=== PATIENT | female | born 1980 | race Caucasian/White ===

== ENCOUNTER 2018-12-05 00:17 | Observation (INO) | payer OTHER ==
[2018-12-05] MEDS ORDERED: CEFEPIME 2 GM in SODIUM CHLORIDE 0.9% 100 ML IVPB STA (00:55)
[2018-12-05] MEDS ORDERED: CLINDAMYCIN 600 MG in DEXTROSE 5% IN WATER 50 ML IVPB STA ×2 (00:56)
[2018-12-05] MEDS ORDERED: MORPHINE SULFATE 4 MG/ML SYRINGE IVP STA (01:46)
--- NOTE | 2018-12-05 01:57 | ED ---
Skin/Abscess/FB HPI - General Chief complaint: Skin/Abscess/Foreign Body Stated complaint: abscess on arm Time Seen by Provider: 12/05/18 00:36 Source: patient Mode of arrival: ambulatory Limitations: no limitations - History of Present Illness Initial comments: 38-year-old female presenting for swelling of right forearm. Patient states that she is an IV drug user, she states a day or 2 after injecting in the right before meals she began began developing swelling and tenderness and increasing redness. Patient is concerned infection presents emergency department. Patient denies fever or chills. She admits to night sweats. Patient denies history of DVT or pulmonary him was on. Remaining review of systems negative, patient denies any recent shortness of breath, chest pain, back pain, abdominal pain, nausea or vomiting, numbness or tingling, dysuria or hematuria, constipation or diarrhea, headaches or visual changes, or any other complaints. - Related Data Home Medications Medication Instructions Recorded Confirmed Atorvastatin Calcium [Lipitor] 20 mg PO HS 08/26/14 10/29/15 Sertraline [Zoloft] 100 mg PO DAILY 08/26/14 10/29/15 ALPRAZolam [Xanax] 1 mg PO Q8HR 10/22/15 10/29/15 Ergocalciferol [Vitamin D2] 50,000 unit PO Q7D 10/22/15 10/29/15 Norethindrone-Ethinyl Estrad 1 each PO DAILY 10/22/15 10/29/15 [Ortho-Novum 7-7-7-28 Tablet] Ranitidine HCl [Zantac] 150 mg PO BID 10/22/15 10/29/15 SUMAtriptan SUCCINATE [Imitrex] 100 mg PO DAILY 10/22/15 10/29/15 oxyCODONE-APAP 10-325MG [Percocet 1 tab PO Q6HR PRN 10/22/15 10/29/15 10-325 mg] tiZANidine [Zanaflex] 4 mg PO Q8HR PRN 10/22/15 10/29/15 Allergies Allergy/AdvReac Type Severity Reaction Status Date / Time No Known Allergies Allergy Verified 12/05/18 00:27 Review of Systems ROS Statement: Those systems with pertinent positive or pertinent negative responses have been documented in the HPI. ROS Other: All systems not noted in ROS Statement are negative. Past Medical History Past Medical History: Musculoskeletal Disorder History of Any Multi-Drug Resistant Organisms: None Reported Past Surgical History: Appendectomy Additional Past Surgical History / Comment(s): Leep Past Anesthesia/Blood Transfusion Reactions: No Reported Reaction Past Psychological History: Depression Smoking Status: Current every day smoker Past Alcohol Use History: None Reported Past Drug Use History: None Reported - Past Family History Mother Family Medical History: No Reported History General Exam - General Exam Comments Initial Comments: General: The patient is awake and alert, in no distress. Eye: Pupils are equal, round and reactive to light, extra-ocular movements are intact. No nystagmus. There is normal conjunctiva bilaterally. No signs of icterus. Ears, nose, mouth and throat: There are moist mucous membranes and no oral lesions. Neck: The neck is supple, there is no tenderness or JVD. Cardiovascular: There is a regular rate and rhythm. No murmur, rub or gallop is appreciated. Respiratory: Lungs are clear to auscultation, respirations are non-labored, breath sounds are equal. No wheezes, stridor, rales, or rhonchi. Musculoskeletal: Normal ROM, no tenderness. Strength 5/5. Sensation intact. Pulses equal bilaterally 2+. Neurological: A&O x 3. CN II-XII intact, There are no obvious motor or sensory deficits. Coordination appears grossly intact. Speech is normal. Skin: Skin is warm and dry and no rashes or lesions are noted. Large fluctuant area over the right before meals 2 x 2 centimeters in diameter. Erythematous warmth/tenderness to palpation Limitations: no limitations Course Vital Signs 12/05/18 12/05/18 00:24 03:52 Temperature 99.7 F H 99.4 F Pulse Rate 122 H 104 H Respiratory 20 16 Rate Blood Pressure 118/78 123/86 O2 Sat by Pulse 97 100 Oximetry Medical Decision Making - Medical Decision Making 38 yo female presenting for right arm swelling. Swelling was concerning for internal or abscess. CT was obtained revealing a superficial relatively superficial abscess 3.8 cm in the antecubital fossa with surrounding phlegmon reaction. There appears to be a reactive myositis and surrounding muscles. Laboratory studies reveal leukocytosis. Pt HR elevated. SIRS criteria. Pt given broad-spectrum antibiotic with clindamycin for MRSA coverage. IVF. Pt hemo dynamically stable. At this time given location feel patient should be admitted for surgical drainage. On-call physician Dr. Canales was contacted speaking with the type provider Dr. Khan, accepting admission with ID and medicine consult. pt ordered NPO. Maintenace fluids ordered. Pt is agreeable wt admission.. Pt was evaluted in person by attending provider. - Lab Data Result diagrams: 12/05/18 02:21 12/05/18 02:21 Lab Results 12/05/18 12/05/18 12/05/18 Range/Units 02:21 02:21 02:21 WBC 16.9 H (3.8-10.6) k/uL RBC 4.07 (3.80-5.40) m/uL Hgb 12.2 (11.4-16.0) gm/dL Hct 37.7 (34.0-46.0) % MCV 92.4 (80.0-100.0) fL MCH 29.9 (25.0-35.0) pg MCHC 32.3 (31.0-37.0) g/dL RDW 14.3 (11.5-15.5) % Plt Count 365 (150-450) k/uL Neutrophils % 77 % Lymphocytes % 16 % Monocytes % 5 % Eosinophils % 0 % Basophils % 0 % Neutrophils # 12.9 H (1.3-7.7) k/uL Lymphocytes # 2.7 (1.0-4.8) k/uL Monocytes # 0.9 (0-1.0) k/uL Eosinophils # 0.1 (0-0.7) k/uL Basophils # 0.1 (0-0.2) k/uL Sodium 136 L (137-145) mmol/L Potassium 3.1 L (3.5-5.1) mmol/L Chloride 101 (98-107) mmol/L Carbon Dioxide 22 (22-30) mmol/L Anion Gap 13 mmol/L BUN 9 (7-17) mg/dL Creatinine 0.56 (0.52-1.04) mg/dL Est GFR (CKD-EPI)AfAm >90 (>60 ml/min/1.73 sqM) Est GFR (CKD-EPI)NonAf >90 (>60 ml/min/1.73 sqM) Glucose 106 H (74-99) mg/dL Plasma Lactic Acid Shawn 0.8 (0.7-2.0) mmol/L Calcium 9.9 (8.4-10.2) mg/dL Total Bilirubin 0.8 (0.2-1.3) mg/dL AST 10 L (14-36) U/L ALT 15 (9-52) U/L Alkaline Phosphatase 82 (38-126) U/L Total Protein 7.3 (6.3-8.2) g/dL Albumin 4.1 (3.5-5.0) g/dL Disposition Clinical Impression: Abscess, SIRS (systemic inflammatory response syndrome) Disposition: ADMITTED IP TO THIS [facility] Condition: Stable Is patient prescribed a controlled substance at d/c from ED?: No Referrals: Bear Nuñez DO [Primary Care Provider] - 1-2 days Time of Disposition: 03:59 Decision to Admit Reason: Admit from EC Decision Date: 12/05/18 Decision Time: 03:59
[2018-12-05] MEDS ORDERED: SODIUM CHLORIDE 0.9% 500 ML 500 ML IV ONE (02:08)
[2018-12-05] MEDS ORDERED: SODIUM CHLORIDE 0.9% 1,000 ML IV ONE ×2 (02:08→10:43)
--- NOTE | 2018-12-05 02:20 | CT ---
EXAM: CT Right Upper Extremity With Intravenous Contrast CLINICAL HISTORY: ITS.REASON CT Reason: right antecubital abscess, appears deep TECHNIQUE: Axial computed tomography images of the right upper extremity with intravenous contrast. CTDI is 15 mGy and DLP is 451 mGy-cm. This CT exam was performed using one or more of the following dose reduction techniques: automated exposure control, adjustment of the mA and/or kV according to patient size, and/or use of iterative reconstruction technique. COMPARISON: No relevant prior studies available. FINDINGS: Bones/joints: Unremarkable. No acute fracture. No dislocation. Soft tissues: In the antecubital fossa, there is a 2.2 x 1.5 x 3.8 cm fluid collection with surrounding phlegmon this process. Vessels are patent. The skin is 5 mm above this process. There is hypodensity of the surrounding muscles. IMPRESSION: Relatively superficial 3.8 cm abscess in the antecubital fossa with surrounding phlegmonous reaction. The skin is 5 mm above this abscess. Hypodensities of the surrounding muscles likely representing reactive myositis.
[2018-12-05 02:41] LABS: ALT 15 U/L (9-52); AST 10 U/L (14-36); Albumin 4.1 g/dL (3.5-5.0); Alkaline Phosphatase 82 U/L (38-126); Anion Gap 13 mmol/L; Blood Urea Nitrogen 9 mg/dL (7-17); Calcium 9.9 mg/dL (8.4-10.2); Carbon Dioxide 22 mmol/L (22-30); Chloride 101 mmol/L (98-107); Glucose 106 mg/dL (74-99); Potassium 3.1 mmol/L (3.5-5.1); Sodium 136 mmol/L (137-145); Total Bilirubin 0.8 mg/dL (0.2-1.3); Total Protein 7.3 g/dL (6.3-8.2)
[2018-12-05 02:47] LABS: Basophils # (A) 0.1 k/uL (0-0.2); Basophils % (A) 0 %; Eosinophils # (A) 0.1 k/uL (0-0.7); Eosinophils % (A) 0 %; HCT 37.7 % (34.0-46.0); HGB 12.2 gm/dL (11.4-16.0); Lymphocytes # (A) 2.7 k/uL (1.0-4.8); Lymphocytes % (A) 16 %; MCH 29.9 pg (25.0-35.0); MCHC 32.3 g/dL (31.0-37.0); MCV 92.4 fL (80.0-100.0); Mean Platelet Volume 7.4; Monocytes # (A) 0.9 k/uL (0-1.0); Monocytes % (A) 5 %; Neutrophils # (A) 12.9 k/uL (1.3-7.7); Neutrophils % (A) 77 %; Platelet Count 365 k/uL (150-450); RBC 4.07 m/uL (3.80-5.40); RDW 14.3 % (11.5-15.5); WBC 16.9 k/uL (3.8-10.6)
[2018-12-05] MEDS ORDERED: NALOXONE 0.4 MG/ML 1 ML VIAL IV PRN (02:52)
[2018-12-05] MEDS: SODIUM CHLORIDE 0.9% 1,000 ML IV SCH ×2 (03:22→16:49)
[2018-12-05] MEDS ORDERED: ACETAMINOPHEN IV (For NPO) 1,000 MG in EMPTY BAG 1 BAG IVPB PRN (05:16)
[2018-12-05 08:57] LABS: Amphetamine Screen,Urine Detected (NotDetected); Barbiturate Screen,Urine Not Detected (NotDetected); Benzodiazepines Screen,Urine Detected (NotDetected); Cocaine Screen,Urine Detected (NotDetected); Methadone Screen, Urine Not Detected (NotDetected); Opiate Screen,Urine Detected (NotDetected); Oxycodone Screen, Urine Not Detected (NotDetected); Phencyclidine Screen,Urine Not Detected (NotDetected); Tricyclic Antidepressant,Urine Detected (NotDetected); Urn Cannabinoid Scrn Detected (NotDetected)
[2018-12-05] MEDS ORDERED: ONDANSETRON 4 MG/2 ML VIAL IVP PRN (09:24)
[2018-12-05] MEDS ORDERED: VANCOMYCIN IV PER PHARMACY 1 EACH MISC MISCELLANE PRN (09:25)
[2018-12-05] MEDS: PANTOPRAZOLE 40 MG/10 ML VIAL IVP SCH (09:38)
[2018-12-05] MEDS: KETOROLAC 30 MG/ML 1 ML VIAL IVP PRN ×3 (09:41→21:15)
--- NOTE | 2018-12-05 09:54 | P.GSHP ---
History of Present Illness H&P Date: 12/05/18 Chief Complaint: Right antecubital fossa abscess 38-year-old female. Admits to IV drug use. Patient describes increasing swelling in the right antecubital fossa after using that site for injection. Increasing redness and pain. Unable to bend the elbow much because of dis comfort. Denies fevers although had a low-grade fever here in the hospital. Leukocytosis identified on CBC. Urine drug screen shows multiple positive findings. Denies any numbness or tingling in the distal right extremity, no weakness. Patient states she has had a similar episode in her right lower quadrant or groin in the past. CAT scan was performed showing a subcutaneous abscess collection. - Review of Systems Comment: The patient denies any acute changes in vision or hearing, no dysphagia or odynophagia, no chest pain or shortness of breath, no dysuria or hematuria, no headache, no runny nose, no rectal bleeding or melena, no unexplained weight loss Past Medical History Past Medical History: Musculoskeletal Disorder History of Any Multi-Drug Resistant Organisms: None Reported Past Surgical History: Appendectomy Additional Past Surgical History / Comment(s): Leep Past Anesthesia/Blood Transfusion Reactions: No Reported Reaction Past Psychological History: Depression Smoking Status: Current every day smoker Past Alcohol Use History: None Reported Past Drug Use History: None Reported - Past Family History Mother Family Medical History: No Reported History Medications and Allergies Home Medications Medication Instructions Recorded Confirmed Type Atorvastatin Calcium [Lipitor] 20 mg PO HS 08/26/14 12/05/18 History Sertraline [Zoloft] 100 mg PO DAILY 08/26/14 12/05/18 History Ergocalciferol [Vitamin D2] 50,000 unit PO Q7D 10/22/15 12/05/18 History Ranitidine HCl [Zantac] 150 mg PO BID 10/22/15 12/05/18 History SUMAtriptan SUCCINATE [Imitrex] 100 mg PO DAILY 10/22/15 12/05/18 History Allergies Allergy/AdvReac Type Severity Reaction Status Date / Time No Known Allergies Allergy Verified 12/05/18 08:32 Surgical - Exam Vital Signs Temp Pulse Resp BP Pulse Ox 99.7 F H 122 H 20 118/78 97 12/05/18 00:24 12/05/18 00:24 12/05/18 00:24 12/05/18 00:24 12/05/18 00:24 Physical exam: General: Well-developed, well-nourished HEENT: Normocephalic, sclerae nonicteric Abdomen: Nontender, nondistended Extremities: Edema, erythema, tenderness, and induration right antecubital fos sa, just above the elbow crease there is an area of fluctuance measuring 2 x 1 cm, skin is viable Neuro: Alert and oriented Results - Labs 12/05/18 02:21 12/05/18 02:21 Abnormal Lab Results - Last 24 Hours (Table) 12/05/18 12/05/18 12/05/18 Range/Units 02:21 02:21 08:00 WBC 16.9 H (3.8-10.6) k/uL Neutrophils # 12.9 H (1.3-7.7) k/uL Sodium 136 L (137-145) mmol/L Potassium 3.1 L (3.5-5.1) mmol/L Glucose 106 H (74-99) mg/dL AST 10 L (14-36) U/L Urine Opiates Screen Detected H (NotDetected) U Tricyclic Antidepress Detected H (NotDetected) Ur Amphetamines Screen Detected H (NotDetected) U Methamphetamines Scrn Detected H (NotDetected) U Benzodiazepines Scrn Detected H (NotDetected) Urine Cocaine Screen Detected H (NotDetected) U Marijuana (THC) Screen Detected H (NotDetected) Diabetes panel 12/05/18 Range/Units 02:21 Sodium 136 L (137-145) mmol/L Potassium 3.1 L (3.5-5.1) mmol/L Chloride 101 (98-107) mmol/L Carbon Dioxide 22 (22-30) mmol/L BUN 9 (7-17) mg/dL Creatinine 0.56 (0.52-1.04) mg/dL Glucose 106 H (74-99) mg/dL Calcium 9.9 (8.4-10.2) mg/dL AST 10 L (14-36) U/L ALT 15 (9-52) U/L Alkaline Phosphatase 82 (38-126) U/L Total Protein 7.3 (6.3-8.2) g/dL Albumin 4.1 (3.5-5.0) g/dL Calcium panel 12/05/18 Range/Units 02:21 Calcium 9.9 (8.4-10.2) mg/dL Albumin 4.1 (3.5-5.0) g/dL Pituitary panel 12/05/18 Range/Units 02:21 Sodium 136 L (137-145) mmol/L Potassium 3.1 L (3.5-5.1) mmol/L Chloride 101 (98-107) mmol/L Carbon Dioxide 22 (22-30) mmol/L BUN 9 (7-17) mg/dL Creatinine 0.56 (0.52-1.04) mg/dL Glucose 106 H (74-99) mg/dL Calcium 9.9 (8.4-10.2) mg/dL Adrenal panel 12/05/18 Range/Units 02:21 Sodium 136 L (137-145) mmol/L Potassium 3.1 L (3.5-5.1) mmol/L Chloride 101 (98-107) mmol/L Carbon Dioxide 22 (22-30) mmol/L BUN 9 (7-17) mg/dL Creatinine 0.56 (0.52-1.04) mg/dL Glucose 106 H (74-99) mg/dL Calcium 9.9 (8.4-10.2) mg/dL Total Bilirubin 0.8 (0.2-1.3) mg/dL AST 10 L (14-36) U/L ALT 15 (9-52) U/L Alkaline Phosphatase 82 (38-126) U/L Total Protein 7.3 (6.3-8.2) g/dL Albumin 4.1 (3.5-5.0) g/dL Assessment and Plan (1) Abscess Narrative/Plan: Will proceed with incision and drainage with washout of the abscess cavity. Wound will be packed postoperatively. Surgical procedure discussed in detail with the patient. Risks of bleeding, infection, need for additional surgery, joint infection, scarring, wound formation and slow healing, recurrent infection reviewed. She understands and wishes to proceed. Current Visit: Yes Status: Acute Code(s): L02.91 - CUTANEOUS ABSCESS, UNSPECIFIED SNOMED Code(s): 594715645
[2018-12-05] MEDS ORDERED: HYDROmorphone (PF) 1 MG/ML ONE (10:40)
[2018-12-05] MEDS ORDERED: SUCCINYLCHOLINE CHLORIDE 100 MG/5 ML SYR IV ONE (10:40)
[2018-12-05] MEDS ORDERED: MIDAZOLAM 2 MG/2 ML VIAL ONE (10:40)
[2018-12-05] MEDS ORDERED: fentaNYL (PF) 50 MCG/ML 2 ML AMP ONE (10:40)
[2018-12-05] MEDS ORDERED: LIDOCAINE 1% INJ 10MG/ML (20 ML MDV) ONE (10:40)
[2018-12-05] MEDS ORDERED: PROPOFOL 10 MG/ML 20 ML VIAL IV ONE (10:40)
[2018-12-05] MEDS ORDERED: VANCOMYCIN 1,000 MG VIAL IVPB ONE (10:50)
[2018-12-05] MEDS ORDERED: BUPIVACAINE (PF) 0.5% 30 ML VIAL SQ ONE (10:50)
[2018-12-05] MEDS ORDERED: LACTATED RINGERS 1,000 ML IV ONE (11:01)
[2018-12-05] MEDS ORDERED: HYDROmorphone 1 MG/ML 1 ML SYRINGE IM PRN (11:12)
--- NOTE | 2018-12-05 11:15 | P.OP ---
Date of Procedure: 12/05/18 Procedure(s) Performed: PREOPERATIVE DIAGNOSIS: Right antecubital fossa abscess POSTOPERATIVE DIAGNOSIS: Same PROCEDURE: Incision and drainage SURGEON: Sonam EBL: 5 mL ANESTHESIA: General COMPLICATIONS: None OPERATIVE PROCEDURE: Patient placed in the operating table in the supine position. The patient's right arm was prepped and draped sterilely. A longitudinal incision was made above the elbow crease at the site of fluctuance. Entrance into a purulent filled abscess cavity took place. This was imme diately cultured. The incision was lengthened proximally and distally. The distal aspect of our incision was right at the elbow crease. The subcutaneous abscess cavity measured 5.5 cm in length by 2 cm in width. This was irrigated with saline. There was localized with half percent Marcaine. The wound was then packed with half-inch iodoform gauze and sterile dressings were applied. DISPOSITION: Stable to recovery room
[2018-12-05] MEDS ORDERED: KETOROLAC 30 MG/ML 1 ML VIAL IVP SCH (12:00)
[2018-12-05] MEDS: VANCOMYCIN 1,250 MG in SODIUM CHLORIDE 0.9% 250 ML IVPB SCH ×2 (12:11→21:14)
--- NOTE | 2018-12-05 14:35 | P.CON ---
Consult Note - . Assessment/Plan:: Reason for consult-medical management History of present [id number] female with a past paresis significant for drug abuse comes in with swelling of her right hand. She said that she injects IV drugs through that site and she's been noticing that for the past few days she there is increasing redness and pain and swelling. She is unable to bend the elbow because of that. She was not having any fevers or chills she came into the ER for further urology management. Patient otherwise did not complain of any chest pain racing heart, no cough no shortness breath, no abdominal pain, no nausea and vomiting, or diarrhea constipation, no tingling numbness of any of the extremities, no itch or rash Patient had a CAT scan done which showed subcutaneous abscess in the right upper extremity per patient was thus given antibiotics, pain medications and was admitted under surgical service. Patient already had an I&D done by surgery in the time examination. Status post procedure the proximity was wrapped in dressing. Past medical history - IV drug abuse - Hyperlipidemia Past surgical history - Appendectomy Social history - Patient smokes every day - She admits to IV drug abuse - No history of alcohol abuse Family history - Noncontributory Physical examination Vitals - temperature 97.1 pulse 105 respiration 16 blood pressure 115/64 satting 98% on room air On exam, alert and oriented x3. HEENT: Conjunctivae normal. eyes normal. NECK: No JVD. No thyroid enlargement. No LNs CARDIOVASCULAR: S1, S2 muffled. No murmur RESPIRATION: Breath sounds diminished in the bases. No rhonchi or crackles. No bronchial breathing. ABDOMEN: Soft, nontender . No guarding. no masses palpable. No ascites, No hepatosplenomegaly.Bowel sounds heard. LEGS: No edema. no swelling NERVOUS SYSTEM: Cranial N 2-12 grossly normal. Moves all 4 limbs. No focal deficits. No sensory deficit. No signs of cerebellar dysfucntion. Skin: no ulcer no rash Joints: Patient has the right upper extremity wrapped in dressing just below the elbow joint status post I&D Lymphatic system. No LN neck axilla or groin. Impressio - Abscess of the right upper extremity 3.8 cm in the right antecubital fossa status post incision and drainage done by surgery team - Ongoing IV drug abuse - Hyperlipidemia - Leukocytosis Plan - Patient is admitted under general surgery service - Hospitalist service consulted for medical management - Pain control as per primary team - Continue antibiotics. Infectious disease consulted for further antibiotic recommendations - Continue current medical care - DVT and GI prophylaxis - We'll continue to follow the patient along with you
[2018-12-05] MEDS ORDERED: LACTATED RINGERS 1,000 ML IV SCH (16:19)
[2018-12-05] MEDS: HEPARIN SODIUM,PORCINE 5,000 UNIT/ML 1 ML VIAL SQ SCH ×2 (16:49→23:50)
--- NOTE | 2018-12-05 23:44 | P.CONS ---
History of Present Illness - Reason for Consult Consult date: 12/05/18 Right antecubital fossa abscess Requesting physician: Tony Masters - Chief Complaint Right arm pain swelling x few days - History of Present Illness Patient is a 38-year-old female with a past medical history significant for IV drug use presented to the ER at [facility] with significant pain swelling and redness to the right antecubital fossa the site of her IV drug use, patient mentioned that the right antecubital fossa area started getting painful and swollen and red that has subsequently got worse over the next few days on arrival to the hospital the patient pain was almost 10 out of 10 with no radiation she did have significant swelling and redness to it and the area was warm she did have low-grade fever and elevated white count patient has CT of the right arm elevated shows 3.8 cm abscess patient was taken to the OR this morning status post drainage of this abscess infectious disease was consulted for recommendation regarding antibiotic therapy Review of Systems CONSTITUTIONAL: Positive for weakness. Low-grade Fever EYES: No complaint. ENT:No complaint. RESPIRATORY: No complaint. CARDIOVASCULAR: No complaint. GENITOURINARY: No complaint. GASTROINTESTINAL: No complaint. MUSCULOSKELETAL: No complaint. INTEGUMENTARY: As per history of present illness. PSYCHOLOGICAL: No complaint. ENDOCRINE: No complaint. NEUROLOGIC: No complaint. Past Medical History Past Medical History: Musculoskeletal Disorder History of Any Multi-Drug Resistant Organisms: None Reported Past Surgical History: Appendectomy Additional Past Surgical History / Comment(s): Leep Past Anesthesia/Blood Transfusion Reactions: No Reported Reaction Past Psychological History: Depression Smoking Status: Current every day smoker Past Alcohol Use History: None Reported Past Drug Use History: None Reported - Past Family History Mother Family Medical History: No Reported History Medications and Allergies Home Medications Medication Instructions Recorded Confirmed Type Atorvastatin Calcium [Lipitor] 20 mg PO HS 08/26/14 12/05/18 History Sertraline [Zoloft] 100 mg PO DAILY 08/26/14 12/05/18 History Ergocalciferol [Vitamin D2] 50,000 unit PO Q7D 10/22/15 12/05/18 History Ranitidine HCl [Zantac] 150 mg PO BID 10/22/15 12/05/18 History SUMAtriptan SUCCINATE [Imitrex] 100 mg PO DAILY 10/22/15 12/05/18 History Allergies Allergy/AdvReac Type Severity Reaction Status Date / Time No Known Allergies Allergy Verified 12/05/18 08:32 Physical Exam Vitals: Vital Signs Temp Pulse Pulse Pulse Resp BP BP 12/05/18 14:00 93 101/69 12/05/18 13:45 92 98/66 12/05/18 13:30 94 114/72 12/05/18 13:15 91 106/64 12/05/18 13:00 91 106/64 12/05/18 12:45 94 108/68 12/05/18 12:30 98 113/67 12/05/18 12:15 93 106/71 12/05/18 12:00 98.6 F 98 14 110/72 12/05/18 11:47 105 H 16 115/64 12/05/18 11:33 89 16 100/59 12/05/18 11:18 97.1 F L 81 16 100/57 12/05/18 07:00 98.4 F 93 16 123/89 12/05/18 06:03 98.5 F 97 16 117/79 12/05/18 05:52 16 12/05/18 05:13 99.7 F H 93 16 112/83 12/05/18 03:52 99.4 F 104 H 16 123/86 12/05/18 00:24 99.7 F H 122 H 20 118/78 Pulse Ox 12/05/18 14:00 12/05/18 13:45 12/05/18 13:30 12/05/18 13:15 12/05/18 13:00 12/05/18 12:45 12/05/18 12:30 12/05/18 12:15 12/05/18 12:00 95 12/05/18 11:47 98 12/05/18 11:33 100 12/05/18 11:18 100 12/05/18 07:00 93 L 12/05/18 06:03 98 12/05/18 05:52 12/05/18 05:13 100 12/05/18 03:52 100 12/05/18 00:24 97 Intake and Output 12/05/18 12/05/18 12/05/18 06:59 14:59 22:59 Intake Total 1068 Output Total 10 Balance 1058 Intake: IV 500 Intake, IV Titration 450 Amount Sodium Chloride 0.9% 1, 200 000 ml @ 75 mls/hr IV . [id number] [facility] Rx#:[id number] Vancomycin 1,250 mg In 250 Sodium Chloride 0.9% 250 ml @ 125 mls/hr IVPB Q12HR [facility] Rx#:[id number] Oral 118 Output: Estimated Blood Loss 10 Other: Weight 61.734 kg GENERAL DESCRIPTION: Middle-aged female lying in bed, no distress. No tachypnea or accessory muscle of respiration use. HEENT: Shows Pallor , no scleral icterus. Oral mucous membrane is dry. No pharyngeal erythema or thrush NECK: Trachea central, no thyromegaly. LUNGS: Unlabored breathing. Clear to auscultation anteriorly. No wheeze or crackle. HEART: S1, S2, regular rate and rhythm. No loud murmur ABDOMEN: Soft, no tenderness , guarding or rigidity, no organomegaly EXTREMITIES: No edema of feet. SKIN: No rash, no masses palpable. Right antecubital fossa the wound is currently dressed with no drainage on the dressing NEUROLOGICAL: The patient is awake, alert, oriented x3, mood and affect normal. Results CBC & Chem 7: 12/05/18 02:21 12/05/18 02:21 Labs: Abnormal Lab Results - Last 24 Hours (Table) 12/05/18 12/05/18 12/05/18 Range/Units 02:21 02:21 08:00 WBC 16.9 H (3.8-10.6) k/uL Neutrophils # 12.9 H (1.3-7.7) k/uL Sodium 136 L (137-145) mmol/L Potassium 3.1 L (3.5-5.1) mmol/L Glucose 106 H (74-99) mg/dL AST 10 L (14-36) U/L Urine Opiates Screen Detected H (NotDetected) U Tricyclic Antidepress Detected H (NotDetected) Ur Amphetamines Screen Detected H (NotDetected) U Methamphetamines Scrn Detected H (NotDetected) U Benzodiazepines Scrn Detected H (NotDetected) Urine Cocaine Screen Detected H (NotDetected) U Marijuana (THC) Screen Detected H (NotDetected) Assessment and Plan Assessment: 1-right antecubital fossa abscess from IV drug use status post drainage of this abscess by general surgery likely secondary to gram-positive skin black such as Streptococcus or MRSA likely gram-negative infection (1) Abscess Current Visit: Yes Status: Acute Code(s): L02.91 - CUTANEOUS ABSCESS, UNSPECIFIED SNOMED Code(s): 630287667 Plan: 1-vancomycin pharmacy to dose target trough of 15 while watching Vanco trough and kidney function closely 2-gentle IV fluids We will follow-up on clinical condition and cultures to further adjust medication if needed Thank you for this consultation will follow this patient along with you Time with Patient: Greater than 30
[2018-12-06] MEDS: SODIUM CHLORIDE 0.9% 1,000 ML IV SCH ×2 (06:09→22:20)
[2018-12-06 08:11] LABS: Anion Gap 5 mmol/L; Blood Urea Nitrogen 6 mg/dL (7-17); Calcium 8.7 mg/dL (8.4-10.2); Carbon Dioxide 24 mmol/L (22-30); Chloride 110 mmol/L (98-107); Glucose 94 mg/dL (74-99); Potassium 3.5 mmol/L (3.5-5.1); Sodium 139 mmol/L (137-145)
[2018-12-06 08:17] LABS: HCT 29.3 % (34.0-46.0); MCH 30.7 pg (25.0-35.0); MCHC 32.4 g/dL (31.0-37.0); MCV 94.6 fL (80.0-100.0); Mean Platelet Volume 7.3; Platelet Count 254 k/uL (150-450); RDW 13.9 % (11.5-15.5); WBC 7.3 k/uL (3.8-10.6)
[2018-12-06 08:20] LABS: HGB 9.5 gm/dL (11.4-16.0)
--- NOTE | 2018-12-06 10:40 | P.PN ---
<Marylu Oliveira - Last Filed: 12/06/18 10:36> Subjective Progress Note Date: 12/06/18 CHIEF COMPLAINT: Right arm abscess HISTORY OF PRESENT ILLNESS: Patient seen and examined at the bedside. Patient currently resting comfortably. She complains of pain to right surgical site. Right upper extremity dressed with gauze dressing. No drainage noted. Vital signs stable. Patient afebrile. Cultures pending. PHYSICAL EXAM: VITAL SIGNS: Reviewed. GENERAL: Well-developed in no acute distress. HEENT: No sclera icterus. Extraocular movements grossly intact. Moist buccal mucosa. Head is atraumatic, normocephalic. ABDOMEN: Soft. Nondistended. Nontender. . NEUROLOGIC: Alert and oriented. Cranial nerves II through XII grossly intact. EXTREMITIES: Dressing to right upper extremity. No drainage noted. ASSESSMENT: 1. right arm abscess status post incision and drainage PLAN: Continue antibiotics per infectious disease. Await wound culture results. continue dressing changes daily with aquacel silver rope packing Nurse practitioner note has been reviewed by physician. Signing provider agrees with the documented findings, assessment, and plan of care. Objective - Vital Signs Vital signs: Vital Signs Temp 98.0 F 12/06/18 07:30 Pulse 78 12/06/18 07:30 Resp 15 12/06/18 07:30 BP 108/68 12/06/18 07:30 Pulse Ox 97 12/06/18 07:30 Intake & Output 12/05/18 12/06/18 12/06/18 18:59 06:59 18:59 Intake Total 1304 470 Output Total 10 Balance 1294 470 Intake: IV 500 Intake, IV Titration 450 470 Amount Lactated Ringers 1,000 ml 220 @ 20 mls/hr IV .Q24H [facility] Rx#:[id number] Sodium Chloride 0.9% 1, 200 000 ml @ 75 mls/hr IV . [id number] [facility] Rx#:[id number] Vancomycin 1,250 mg In 250 250 Sodium Chloride 0.9% 250 ml @ 125 mls/hr IVPB Q12HR [facility] Rx#:[id number] Oral 354 Output: Estimated Blood Loss 10 - Labs CBC & Chem 7: 12/06/18 07:03 12/06/18 07:03 Labs: Abnormal Lab Results - Last 24 Hours (Table) 12/06/18 12/06/18 Range/Units 07:03 07:03 RBC 3.10 L (3.80-5.40) m/uL Hgb 9.5 L D (11.4-16.0) gm/dL Hct 29.3 L (34.0-46.0) % Chloride 110 H (98-107) mmol/L BUN 6 L (7-17) mg/dL Creatinine 0.49 L (0.52-1.04) mg/dL Microbiology - Last 24 Hours (Table) 12/05/18 10:53 Gram Stain - Preliminary Arm - Right Wound Culture - Preliminary 12/05/18 02:21 Blood Culture - Preliminary Blood No Growth after 24 hours 12/05/18 10:53 Anaerobic Culture - Preliminary Arm - Right <Tony Masters - Last Filed: 12/06/18 16:49> Subjective As above. Patient doing better. Her pain is improved. No fevers. White blood cell count improved. Await cultures. Continue local wound care. May shower tomorrow. Objective - Vital Signs Vital signs: Vital Signs Temp 98.5 F 12/06/18 14:53 Pulse 75 12/06/18 14:53 Resp 15 12/06/18 07:30 BP 133/94 12/06/18 14:53 Pulse Ox 99 12/06/18 14:53 Intake & Output 12/05/18 12/06/18 12/06/18 18:59 06:59 18:59 Intake Total 5099 285 5556 Output Total 10 Balance 6713 762 1044 Intake: IV 500 Intake, IV Titration 450 470 525 Amount Lactated Ringers 1,000 ml 220 @ 20 mls/hr IV .Q24H [facility] Rx#:[id number] Sodium Chloride 0.9% 1, 200 525 000 ml @ 75 mls/hr IV . [id number] [facility] Rx#:[id number] Vancomycin 1,250 mg In 250 250 Sodium Chloride 0.9% 250 ml @ 125 mls/hr IVPB Q12HR [facility] Rx#:[id number] Oral 354 480 Output: Estimated Blood Loss 10 - Labs CBC & Chem 7: 12/06/18 07:03 12/06/18 07:03 Labs: Abnormal Lab Results - Last 24 Hours (Table) 12/06/18 12/06/18 Range/Units 07:03 07:03 RBC 3.10 L (3.80-5.40) m/uL Hgb 9.5 L D (11.4-16.0) gm/dL Hct 29.3 L (34.0-46.0) % Chloride 110 H (98-107) mmol/L BUN 6 L (7-17) mg/dL Creatinine 0.49 L (0.52-1.04) mg/dL Microbiology - Last 24 Hours (Table) 12/05/18 10:53 Gram Stain - Preliminary Arm - Right Wound Culture - Preliminary 12/05/18 02:21 Blood Culture - Preliminary Blood No Growth after 24 hours 12/05/18 10:53 Anaerobic Culture - Preliminary Arm - Right Assessment and Plan (1) Abscess Current Visit: Yes Status: Acute Code(s): L02.91 - CUTANEOUS ABSCESS, UNSPECIFIED SNOMED Code(s): 738753686
[2018-12-06] MEDS: HEPARIN SODIUM,PORCINE 5,000 UNIT/ML 1 ML VIAL SQ SCH ×2 (10:44→17:56)
[2018-12-06] MEDS: PANTOPRAZOLE 40 MG/10 ML VIAL IVP SCH (10:45)
[2018-12-06] MEDS: VANCOMYCIN 1,250 MG in SODIUM CHLORIDE 0.9% 250 ML IVPB SCH ×2 (10:46→22:18)
[2018-12-06 11:21] LABS: Hepatitis A Antibody IgM Non-Reactive (Non-Reactive); Hepatitis B Core IgM Non-Reactive (Non-Reactive)
[2018-12-06] MEDS ORDERED: SUMAtriptan SUCCINATE 50 MG TAB PO PRN (15:00)
--- NOTE | 2018-12-06 15:09 | P.PN ---
Subjective 38-year-old female admitted forabscess in the right anti-E postoperative patient is status post incision and drainage patient is presently on vancomycin and cefepime infectious disease following the patient. Patient urine drug screen is positive for multiple drugs hepatitis panel is negative for any hepatitis C or B. Constitutional: Denied any fatigue denied any fever. Cardio vascular: denied any chest pain, palpitations Gastrointestinal denied any nausea vomiting Pulmonary: Denied any shortness of breath cough Neurologic denied any new focal deficits All inpatient medications were reviewed and appropriate changes in these medications as dictated in the interval history and assessment and plan. Objective - Vital Signs Vital signs: Vital Signs Temp 98.0 F 12/06/18 07:30 Pulse 78 12/06/18 07:30 Resp 15 12/06/18 07:30 BP 108/68 12/06/18 07:30 Pulse Ox 97 12/06/18 07:30 Intake & Output 12/05/18 12/06/18 12/06/18 18:59 06:59 18:59 Intake Total 1304 470 Output Total 10 Balance 1294 470 Intake: IV 500 Intake, IV Titration 450 470 Amount Lactated Ringers 1,000 ml 220 @ 20 mls/hr IV .Q24H [facility] Rx#:[id number] Sodium Chloride 0.9% 1, 200 000 ml @ 75 mls/hr IV . [id number] [facility] Rx#:[id number] Vancomycin 1,250 mg In 250 250 Sodium Chloride 0.9% 250 ml @ 125 mls/hr IVPB Q12HR [facility] Rx#:[id number] Oral 354 Output: Estimated Blood Loss 10 - Exam PHYSICAL EXAMINATION: GENERAL: The patient is alert and oriented x3, not in any acute distress. Well developed, well nourished. HEENT: Pupils are round and equally reacting to light. EOMI. No scleral icterus. No conjunctival pallor. Normocephalic, atraumatic. No pharyngeal erythema. No thyromegaly. CARDIOVASCULAR: S1 and S2 present. No murmurs, rubs, or gallops. PULMONARY: Chest is clear to auscultation, no wheezing or crackles. ABDOMEN: Soft, nontender, nondistended, normoactive bowel sounds. No palpable organomegaly. MUSCULOSKELETAL: No joint swelling or deformity.right arm antecubital foci was not examined as it was dressed surgically EXTREMITIES: No cyanosis, clubbing, or pedal edema. NEUROLOGICAL: Gross neurological examination did not reveal any focal deficits. SKIN: No rashes. - Labs CBC & Chem 7: 12/06/18 07:03 12/06/18 07:03 Labs: Abnormal Lab Results - Last 24 Hours (Table) 12/06/18 12/06/18 Range/Units 07:03 07:03 RBC 3.10 L (3.80-5.40) m/uL Hgb 9.5 L D (11.4-16.0) gm/dL Hct 29.3 L (34.0-46.0) % Chloride 110 H (98-107) mmol/L BUN 6 L (7-17) mg/dL Creatinine 0.49 L (0.52-1.04) mg/dL Microbiology - Last 24 Hours (Table) 12/05/18 10:53 Gram Stain - Preliminary Arm - Right Wound Culture - Preliminary 12/05/18 02:21 Blood Culture - Preliminary Blood No Growth after 24 hours 12/05/18 10:53 Anaerobic Culture - Preliminary Arm - Right Assessment and Plan Plan: -abscess in the right upper extremity: Status post incision and drainage continue with the Cipro and vancomycin -Hyperlipidemia -Possible IV drug use with a negative hepatitis C or hepatitis B -nicotine abuse: Counseling was provided
[2018-12-06] MEDS ORDERED: ATORVASTATIN 20 MG TAB PO SCH (21:00)
[2018-12-06] MEDS ORDERED: NON-FORMULARY DRUG (Ranitidine Hcl [Zantac] 150 MG) PO SCH (21:00)
--- NOTE | 2018-12-06 23:20 | PN ---
PROGRESS NOTE DATE OF SERVICE: 12/06/2018. REASON FOR FOLLOW UP: Right antecubital fossa abscess from IV drug use. INTERVAL HISTORY: The patient is currently afebrile. The patient is breathing comfortably. Pain to the right antecubital fossa currently covered with pain medication. No worsening. No chest pain. No abdominal pain. No diarrhea. PHYSICAL EXAMINATION: Blood pressure is 104/68 with a pulse of 81, temperature 98.2. She is 97% on room air. General description is a middle-aged female up in the bed in no distress. Respiratory system: Breathing, clear to auscultation anteriorly. HEART S1, S2. Regular rate and rhythm. ABDOMEN: Right ankle ulcer with deep wound. No fluctuation of surrounding. LABS: Hemoglobin 9.5, white count 7.3 with a BUN of 6, creatinine 0.49. Cultures are currently pending. DIAGNOSTIC IMPRESSION AND PLAN: Patient with right antecubital fossa abscess from IV drug use, status post drainage of the abscess. The patient at this time to continue with vancomycin while waiting for the cultures to finalize to determine discharge antibiotics. Local wound care with Aquacel silver rope. Questions and concerns were answered. MMODL / IJN: [id number] /
[2018-12-07] MEDS: HEPARIN SODIUM,PORCINE 5,000 UNIT/ML 1 ML VIAL SQ SCH ×2 (00:29→07:56)
[2018-12-07] MEDS: VANCOMYCIN 1,250 MG in SODIUM CHLORIDE 0.9% 250 ML IVPB SCH ×2 (04:53→13:41)
[2018-12-07 07:44] LABS: HCT 30.9 % (34.0-46.0); HGB 10.2 gm/dL (11.4-16.0); MCH 30.8 pg (25.0-35.0); MCV 93.2 fL (80.0-100.0); Mean Platelet Volume 7.8; Platelet Count 295 k/uL (150-450); RBC 3.32 m/uL (3.80-5.40); RDW 13.9 % (11.5-15.5); WBC 9.3 k/uL (3.8-10.6)
[2018-12-07 07:56] LABS: Anion Gap 5 mmol/L; Blood Urea Nitrogen 4 mg/dL (7-17); Calcium 8.8 mg/dL (8.4-10.2); Carbon Dioxide 24 mmol/L (22-30); Chloride 111 mmol/L (98-107); Glucose 95 mg/dL (74-99); Potassium 3.5 mmol/L (3.5-5.1); Sodium 140 mmol/L (137-145)
[2018-12-07] MEDS: KETOROLAC 30 MG/ML 1 ML VIAL IVP PRN ×2 (07:59→10:32)
[2018-12-07 08:18] VITALS: BP 146/89; PULSE 84; RESP 15; TEMP 98.3
[2018-12-07] MEDS ORDERED: PANTOPRAZOLE 40 MG TABLET PO SCH (09:00)
[2018-12-07] MEDS ORDERED: SERTRALINE 100 MG TAB PO SCH (09:00)
[2018-12-07] MEDS: SODIUM CHLORIDE 0.9% 1,000 ML IV SCH (10:33)
--- NOTE | 2018-12-07 12:33 | P.DS ---
<Marylu Oliveira Chaka - Last Filed: 12/07/18 12:29> Providers Expected date of discharge: 12/07/18 Hospital Course: 38-year-old female who presented to the emergency room secondary to increased redness and pain of right antecubital fossa after using that site for drug injection. Toxicology screen positive for opioids, tricyclic antidepressants, amphetamines, methamphetamines, benzodiazepines, cocaine, and marijuana. Computed tomography scan revealed 3.8 cm abscess. Patient underwent I&D with Dr. Masters. Infectious disease was consulted and has been following patient during hospitalization. Wound care includes packing wound with Aquacel Silver and wrapping with gauze daily. Dr. Faust recommends Keflex at the time of discharge. Patient requesting to be discharged today as she is scheduled to go to [facility] tomorrow for rehab. Patient is stable for discharge today. Please see EMR for further hospital course details. Discharge diagnosis 1. Abscess, status post IV drug abuse Nurse practitioner note has been reviewed by physician. Signing provider agrees with the documented findings, assessment, and plan of care. Patient Condition at Discharge: Stable Plan - Discharge Summary New Discharge Prescriptions: New Cephalexin [Keflex] 500 mg PO Q6HR #40 cap No Action Sertraline [Zoloft] 100 mg PO DAILY Atorvastatin Calcium [Lipitor] 20 mg PO HS Ergocalciferol [Vitamin D2] 50,000 unit PO Q7D Ranitidine HCl [Zantac] 150 mg PO BID SUMAtriptan SUCCINATE [Imitrex] 100 mg PO DAILY PRN PRN Reason: Migraine Headache Discharge Medication List Atorvastatin Calcium [Lipitor] 20 mg PO HS 08/26/14 [History] Sertraline [Zoloft] 100 mg PO DAILY 08/26/14 [History] Ergocalciferol [Vitamin D2] 50,000 unit PO Q7D 10/22/15 [History] Ranitidine HCl [Zantac] 150 mg PO BID 10/22/15 [History] SUMAtriptan SUCCINATE [Imitrex] 100 mg PO DAILY PRN 10/22/15 [History] Cephalexin [Keflex] 500 mg PO Q6HR #40 cap 12/07/18 [Rx] Follow up Appointment(s)/Referral(s): Tony Masters MD [Medical Doctor] - 12/15/18 2:10 pm Bear Nuñez DO [Primary Care Provider] - 12/09/18 11:30 am Esteban Faust MD [STAFF PHYSICIAN] - 12/14/18 2:15 pm Patient Instructions/Handouts: Polysubstance Abuse (ED), Incision and Drainage (DC) Activity/Diet/Wound Care/Special Instructions: Wound care: Remove old packing. Clean wound with saline. Repack wound with Aquacel silver (may cut into strips). Wrap with roll of gauze. Change daily Dressing supplies: Aquacel Silver and saline - [facility] [employer] at [facility]. Phone number is: [phone]. [address], [address] in [place] [address]. Discharge Disposition: HOME SELF-CARE <Tony Masters - Last Filed: 12/07/18 16:55> Providers Date of admission: 12/05/18 03:42 Attending physician: Tony Masters Consults: 12/05/18 02:52 Consult Physician Routine Consulting Provider: Marcio Henriquez Consult Reason/Comments: medicine consult, surgical patient Do you want consulting provider notified?: Yes, Notify in am Consult Physician Routine Consulting Provider: Esteban Faust Consult Reason/Comments: AC abscess Do you want consulting provider notified?: Yes, Notify in am Primary care physician: Bear Nuñez - Discharge Diagnosis(es) (1) Abscess Status: Acute Hospital Course: As above. Patient doing well. Improved range of motion. Pain well-controlled. Outpatient follow-up advised.
--- NOTE | 2018-12-07 12:48 | P.PN ---
Subjective 38-year-old female admitted forabscess in the right anti-E postoperative patient is status post incision and drainage patient is presently on vancomycin and cefepime infectious disease following the patient. Patient urine drug screen is positive for multiple drugs hepatitis panel is negative for any hepatitis C or B. 12/07/2018 Patient pain is well-controlled clinically doing well and patient has strep pyogento can be discharged from medical perspective if cleared by surgery and infectious disease, probably on Keflex. Patient worried about [place] Constitutional: Denied any fatigue denied any fever. Cardio vascular: denied any chest pain, palpitations Gastrointestinal denied any nausea vomiting Pulmonary: Denied any shortness of breath cough Neurologic denied any new focal deficits All inpatient medications were reviewed and appropriate changes in these medications as dictated in the interval history and assessment and plan. Objective - Vital Signs Vital signs: Vital Signs Temp 98.3 F 12/07/18 07:00 Pulse 84 12/07/18 07:00 Resp 15 12/07/18 07:00 BP 146/89 12/07/18 07:00 Pulse Ox 98 12/07/18 07:00 Intake & Output 12/06/18 12/07/18 12/07/18 18:59 06:59 18:59 Intake Total 1005 1000 Balance 1005 1000 Intake: Intake, IV Titration 525 Amount Sodium Chloride 0.9% 1, 525 000 ml @ 75 mls/hr IV . [id number] [facility] Rx#:[id number] Oral 480 1000 Other: # Voids 2 - Exam PHYSICAL EXAMINATION: GENERAL: The patient is alert and oriented x3, not in any acute distress. Well developed, well nourished. HEENT: Pupils are round and equally reacting to light. EOMI. No scleral icterus. No conjunctival pallor. Normocephalic, atraumatic. No pharyngeal erythema. No thyromegaly. CARDIOVASCULAR: S1 and S2 present. No murmurs, rubs, or gallops. PULMONARY: Chest is clear to auscultation, no wheezing or crackles. ABDOMEN: Soft, nontender, nondistended, normoactive bowel sounds. No palpable organomegaly. MUSCULOSKELETAL: No joint swelling or deformity.right arm antecubital foci redness is down swelling is down incision site area clear EXTREMITIES: No cyanosis, clubbing, or pedal edema. NEUROLOGICAL: Gross neurological examination did not reveal any focal deficits. SKIN: No rashes. - Labs CBC & Chem 7: 12/07/18 07:08 12/07/18 07:08 Labs: Abnormal Lab Results - Last 24 Hours (Table) 12/07/18 12/07/18 Range/Units 07:08 07:08 RBC 3.32 L (3.80-5.40) m/uL Hgb 10.2 L (11.4-16.0) gm/dL Hct 30.9 L (34.0-46.0) % Chloride 111 H (98-107) mmol/L BUN 4 L (7-17) mg/dL Creatinine 0.46 L (0.52-1.04) mg/dL Microbiology - Last 24 Hours (Table) 12/05/18 10:53 Gram Stain - Final Arm - Right Wound Culture - Final Alpha Hemolytic Streptococcus 12/05/18 02:21 Blood Culture - Preliminary Blood No Growth after 48 hours Assessment and Plan Plan: -abscess in the right upper extremity: Status post incision and and patient has to for cocci, can be discharged from medical perspective -Hyperlipidemia -Possible IV drug use with a negative hepatitis C or hepatitis B -nicotine abuse: Counseling was provided
--- NOTE | 2018-12-07 15:19 | PN ---
PROGRESS NOTE DATE OF SERVICE: 12/07/2018 REASON FOR FOLLOWUP: Right antecubital fossa abscess. INTERVAL HISTORY: The patient is currently afebrile. Patient has been breathing comfortably. Denies having any chest pain or any cough. No abdominal pain or any worsening pain in the right arm area. PHYSICAL EXAMINATION: Blood pressure 146/81 with a pulse of 84, temperature 98.3, she is 98% on room air. General description is a middle aged female, lying in bed in no distress. RESPIRATORY SYSTEM: Unlabored breathing, clear to auscultation anteriorly. HEART: S1, S2. Regular rate and rhythm. ABDOMEN: Soft. Right antecubital fossa wound with obvious drainage on the dressing. LABS: White count 9.3, BUN of 4, creatinine 0.46. Wound culture with alpha hemolytic Streptococcus. DIAGNOSTIC IMPRESSION AND PLAN: Patient with right antecubital fossa abscess from IV injection drug use, status post drainage of the abscess, culture with also hemolytic strep. Plan at this time is to finish therapy with oral Keflex 500 mg p.o. q.6 hours for 10 days. Local wound care with Aquacel Silver packing of the wound. Continue supportive care. MMODL / IJN: [id number] /
[2018-12-07] MEDS ORDERED: VANCOMYCIN TROUGH DUE 1 EACH MISC MISCELLANE ONE (19:00)
== END 2018-12-07 16:30 | disposition home or self-care (01) ==
LOC: EC 00:17 → 4SSUR 03:42
PROVIDERS: ADMIT Surgery; ATTEND Surgery
DX: L02.413 Cutaneous abscess of right upper limb (principal); F32.9 Major depressive disorder, single episode, unspecified; Z90.49 Acquired absence of other specified parts of digestive tract; E78.5 Hyperlipidemia, unspecified; F17.200 Nicotine dependence, unspecified, uncomplicated; F19.10 Other psychoactive substance abuse, uncomplicated; Z79.899 Other long term (current) drug therapy; Z71.6 Tobacco abuse counseling
CPT/HCPCS: 10060; 96365; 96367; 96375; 99284; 36415; 80053; 80048 ×2; 80074; 83605; 85025; 85027 ×2; 81025; 87040; 80306; 87070; 87205; 87075; 73201; G0378 ×3; G0480; J2250; J3370 ×3; J2270; J2405; J2001; J0692; J3010; J1885 ×2; J1170; J0330; J2704; C9113 ×2; Q9967; 80320

== ENCOUNTER 2018-12-14 14:56 | Inpatient (IN) | payer OTHER ==
[2018-12-14] MEDS ORDERED: SODIUM CHLORIDE 0.9% 1,000 ML IV STA (15:12)
[2018-12-14] MEDS ORDERED: MORPHINE SULFATE 4 MG/ML SYRINGE IV STA (15:12)
--- NOTE | 2018-12-14 15:15 | ED ---
General Adult HPI - General Source: patient, RN notes reviewed, old records reviewed Mode of arrival: ambulatory Limitations: no limitations <El Vanegas - Last Filed: 12/14/18 18:27> <Joseph Villafuerte - Last Filed: 12/14/18 19:02> - General Chief complaint: Back Pain/Injury Stated complaint: Back pain Time Seen by Provider: 12/14/18 15:03 - History of Present Illness Initial comments: 38-year-old female patient pertinent past medical history of IV drug abuse, recent antecubital abscess drained surgically presents to ED with low back pain. Patient is still taking Keflex. Patient reports that today after stretching she began to experience pain in her midline lumbar back region. Patient states that the pain does radiate down her posterior R leg. Patient denies any loss of bowel or bladder control, saddle anesthesia, lower extremity weakness. She does state that she has had some subjective chills today and yesterday. Denies any nausea vomiting diarrhea. Denies chest pain, shortness of breath abdominal pain. Patient states that she believes that she is not . Patient states that she last used IV drugs approximate 48 hours ago. She states that she injected into her hand has no active infections that she is aware of. Systemic: Pt denies fatigue, myalgia, rash. Pt denies weakness, night sweats, weight loss. Neuro: Pt denies headache, visual disturbances, syncope or pre-syncope. HEENT: Pt denies ocular discharge or irritation, otalgia, rhinorrhea, pharyngitis or notable lymphadenopathy. Cardiopulmonary: Pt denies chest pain, SOB, heart palpitations, dyspnea on exertion. Abdominal/GI: Pt denies abdominal pain, n/v/d. : Pt denies dysuria, burning w/ urination, frequency/urgency. Denies new onset urinary or bowel incontinence. MSK: Pt denies myalgia, loss of strength or function in extremities. Neuro: Pt denies new onset weakness, paresthesias. (El Vanegas) - Related Data Home Medications Medication Instructions Recorded Confirmed Atorvastatin Calcium [Lipitor] 20 mg PO HS 08/26/14 12/05/18 Sertraline [Zoloft] 100 mg PO DAILY 08/26/14 12/05/18 Ergocalciferol [Vitamin D2] 50,000 unit PO Q7D 10/22/15 12/05/18 Ranitidine HCl [Zantac] 150 mg PO BID 10/22/15 12/05/18 SUMAtriptan SUCCINATE [Imitrex] 100 mg PO DAILY PRN 10/22/15 12/05/18 Previous Rx's Medication Instructions Recorded Cephalexin [Keflex] 500 mg PO Q6HR #40 cap 12/07/18 Allergies Allergy/AdvReac Type Severity Reaction Status Date / Time No Known Allergies Allergy Verified 12/14/18 15:01 Review of Systems ROS Other: All systems not noted in ROS Statement are negative. <El Vanegas - Last Filed: 12/14/18 18:27> ROS Other: All systems not noted in ROS Statement are negative. <Joseph Villafuerte - Last Filed: 12/14/18 19:02> ROS Statement: Those systems with pertinent positive or pertinent negative responses have been documented in the HPI. Past Medical History Past Medical History: Musculoskeletal Disorder History of Any Multi-Drug Resistant Organisms: None Reported Past Surgical History: Appendectomy Additional Past Surgical History / Comment(s): Leep Past Anesthesia/Blood Transfusion Reactions: No Reported Reaction Past Psychological History: Depression Smoking Status: Current every day smoker Past Alcohol Use History: None Reported Past Drug Use History: None Reported - Past Family History Mother Family Medical History: No Reported History <El Vanegas - Last Filed: 12/14/18 18:27> General Exam Limitations: no limitations <El Vanegas - Last Filed: 12/14/18 18:27> General appearance: alert, in no apparent distress Head exam: Present: atraumatic, normocephalic, normal inspection Eye exam: Present: normal appearance, PERRL, EOMI. Absent: scleral icterus, conjunctival injection, periorbital swelling ENT exam: Present: normal exam, mucous membranes moist Neck exam: Present: normal inspection. Absent: tenderness, meningismus, lymphadenopathy Respiratory exam: Present: normal lung sounds bilaterally. Absent: respiratory distress, wheezes, rales, rhonchi, stridor Cardiovascular Exam: Present: regular rate, normal rhythm, normal heart sounds. Absent: systolic murmur, diastolic murmur, rubs, gallop, clicks GI/Abdominal exam: Present: soft, normal bowel sounds. Absent: distended, tenderness, guarding, rebound, rigid Extremities exam: Present: normal inspection, full ROM, normal capillary refill. Absent: tenderness, pedal edema, joint swelling, calf tenderness Back exam: Present: normal inspection Neurological exam: Present: alert, oriented X3, CN II-XII intact Psychiatric exam: Present: normal affect, normal mood Skin exam: Present: warm, dry, intact, normal color. Absent: rash <Joseph Villafuerte - Last Filed: 12/14/18 19:02> - General Exam Comments Initial Comments: Constitutional: NAD, AOX3, Pt has pleasant affect. HEENT: NC/AT, trachea midline, neck supple, no lymphadenopathy. Posterior pharynx non erythematous, without exudates. External ears appear normal, without discharge. Mucous membranes moist. Eyes PERRLA, EOM intact. There is no scleral icterus. No pallor noted. Cardiopulmonary: RRR, no murmurs, rubs or gallops, no JVD noted. Lungs CTAB in anterior and posterior ott. No peripheral edema. Abdominal exam: Abdomen soft and non-distended. Abdomen non-tender to palpation in all 4 quadrants. Bowel sounds active in LLQ. No hepatosplenomegaly. No ecchymosis Neuro: CN II-XII grossly intact. No nuchal rigidity. MSK: 5 out of 5 strength psoas and quadriceps muscles. Heel to toe walking intact. No midline cervical thoracic lumbar tenderness. Mild left paralumbar tenderness. No erythema, no ecchymoses. Left straight leg raise positive. No posterior calf tenderness bilaterally, homans sign negative bilaterally. Posterior tibialis and radial pulse +2 bilaterally. Sensation intact in upper and lower extremities. Full active ROM in upper and lower extremities, 5/5 stregnth. Derm: Patient of previous abscess nonerythematous, no streaking or drainage. No cellulitis or infection noted on dermis. (El Vanegas) Course <Joseph Villafuerte - Last Filed: 12/14/18 19:02> Vital Signs 12/14/18 12/14/18 15:00 16:33 Temperature 98.4 F 101.6 F H Pulse Rate 109 H 110 H Respiratory 18 20 Rate Blood Pressure 133/83 116/63 O2 Sat by Pulse 99 97 Oximetry - Reevaluation(s) Reevaluation #1: 12/14/18 19:01 Patient is finally with pain control (Joseph Villafuerte) Reevaluation #2: 12/14/18 19:01 Medical record and prior surgical history is reviewed (Joseph Villafuerte) Medical Decision Making - Lab Data Result diagrams: 12/14/18 14:25 12/14/18 15:48 <El Vanegas - Last Filed: 12/14/18 18:27> - Lab Data Result diagrams: 12/14/18 14:25 12/14/18 15:48 - Radiology Data Radiology results: report reviewed (CT lumbar spine is negative for acute di sease, CT abdomen pelvis with contrast as well as MRI of her lumbosacral spine is pending), image reviewed <Joseph Villafuerte - Last Filed: 12/14/18 19:02> - Medical Decision Making 38 female the ER for evaluation, patient presents today for evaluation regarding back pain. Back pain with fever, recent surgery for right forearm abscess. Patient be admitted for IV antibiotics and consult by infectious disease. Will get further imaging to discuss possible causes of infection including epidural abscess, or other arm called abscess or occult bacteremia (Joseph Villafuerte) - Lab Data Lab Results 12/14/18 12/14/18 12/14/18 Range/Units 14:25 14:25 15:31 WBC 2.6 L (3.8-10.6) k/uL RBC 3.53 L (3.80-5.40) m/uL Hgb 10.5 L (11.4-16.0) gm/dL Hct 34.0 (34.0-46.0) % MCV 96.3 (80.0-100.0) fL MCH 29.7 (25.0-35.0) pg MCHC 30.9 L (31.0-37.0) g/dL RDW 14.5 (11.5-15.5) % Plt Count 245 (150-450) k/uL Neutrophils % 87 % Lymphocytes % 9 % Monocytes % 2 % Eosinophils % 1 % Basophils % 1 % Neutrophils # 2.3 (1.3-7.7) k/uL Lymphocytes # 0.2 L (1.0-4.8) k/uL Monocytes # 0.1 (0-1.0) k/uL Eosinophils # 0.0 (0-0.7) k/uL Basophils # 0.0 (0-0.2) k/uL Hypochromasia Slight Sodium (137-145) mmol/L Potassium (3.5-5.1) mmol/L Chloride (98-107) mmol/L Carbon Dioxide (22-30) mmol/L Anion Gap mmol/L BUN (7-17) mg/dL Creatinine (0.52-1.04) mg/dL Est GFR (CKD-EPI)AfAm (>60 ml/min/1.73 sqM) Est GFR (CKD-EPI)NonAf (>60 ml/min/1.73 sqM) Glucose (74-99) mg/dL Plasma Lactic Acid Shawn 1.4 (0.7-2.0) mmol/L Calcium (8.4-10.2) mg/dL Total Bilirubin (0.2-1.3) mg/dL AST (14-36) U/L ALT (9-52) U/L Alkaline Phosphatase (38-126) U/L C-Reactive Protein (<10.0) mg/L Total Protein (6.3-8.2) g/dL Albumin (3.5-5.0) g/dL Urine Color Urine Appearance (Clear) Urine pH (5.0-8.0) Ur Specific Br[place]on (1.001-1.035) Urine Protein (Negative) Urine Glucose (UA) (Negative) Urine Ketones (Negative) Urine Blood (Negative) Urine Nitrite (Negative) Urine Bilirubin (Negative) Urine Urobilinogen (<2.0) mg/dL Ur Leukocyte Esterase (Negative) Ur Squamous Epith Cells (0-4) /hpf Urine Mucus (None) /hpf Urine HCG, Qual Not Detected (Not Detectd) 12/14/18 12/14/18 12/14/18 Range/Units 15:31 15:48 15:48 WBC (3.8-10.6) k/uL RBC (3.80-5.40) m/uL Hgb (11.4-16.0) gm/dL Hct (34.0-46.0) % MCV (80.0-100.0) fL MCH (25.0-35.0) pg MCHC (31.0-37.0) g/dL RDW (11.5-15.5) % Plt Count (150-450) k/uL Neutrophils % % Lymphocytes % % Monocytes % % Eosinophils % % Basophils % % Neutrophils # (1.3-7.7) k/uL Lymphocytes # (1.0-4.8) k/uL Monocytes # (0-1.0) k/uL Eosinophils # (0-0.7) k/uL Basophils # (0-0.2) k/uL Hypochromasia Sodium 139 (137-145) mmol/L Potassium 3.5 (3.5-5.1) mmol/L Chloride 111 H (98-107) mmol/L Carbon Dioxide 21 L (22-30) mmol/L Anion Gap 7 mmol/L BUN 9 (7-17) mg/dL Creatinine 0.45 L (0.52-1.04) mg/dL Est GFR (CKD-EPI)AfAm >90 (>60 ml/min/1.73 sqM) Est GFR (CKD-EPI)NonAf >90 (>60 ml/min/1.73 sqM) Glucose 105 H (74-99) mg/dL Plasma Lactic Acid Shawn (0.7-2.0) mmol/L Calcium 9.0 (8.4-10.2) mg/dL Total Bilirubin 0.6 (0.2-1.3) mg/dL AST 33 (14-36) U/L ALT 20 (9-52) U/L Alkaline Phosphatase 96 (38-126) U/L C-Reactive Protein 55.1 H (<10.0) mg/L Total Protein 6.2 L (6.3-8.2) g/dL Albumin 3.3 L (3.5-5.0) g/dL Urine Color Yellow Urine Appearance Cloudy H (Clear) Urine pH 7.5 (5.0-8.0) Ur Specific [place] 1.014 (1.001-1.035) Urine Protein Negative (Negative) Urine Glucose (UA) Negative (Negative) Urine Ketones Negative (Negative) Urine Blood Negative (Negative) Urine Nitrite Negative (Negative) Urine Bilirubin Negative (Negative) Urine Urobilinogen <2.0 (<2.0) mg/dL Ur Leukocyte Esterase Negative (Negative) Ur Squamous Epith Cells <1 (0-4) /hpf Urine Mucus Rare H (None) /hpf Urine HCG, Qual (Not Detectd) Disposition <lE Vanegas - Last Filed: 12/14/18 18:27> Is patient prescribed a controlled substance at d/c from ED?: No <Joseph Villafuerte - Last Filed: 12/14/18 19:02> Clinical Impression: Sepsis, Fever Narrative: r/o Bacteremia (Joseph Villafuerte) Disposition: ADMITTED IP TO THIS HOSP Condition: Fair Referrals: Bear Nuñez DO [Primary Care Provider] - 1-2 days
[2018-12-14 15:42] LABS: Appearance,Urine Cloudy (Clear); Bilirubin,Urine Negative (Negative); Blood,Urine Negative (Negative); Color,Urine Yellow; Glucose,Urine (UA) Negative (Negative); Ketones,Urine Negative (Negative); Leukocyte Esterase,Urine Negative (Negative); Mucus,Urine Rare /hpf; Nitrite,Urine Negative (Negative); PH, Urine 7.5 (5.0-8.0); Protein,Urine Negative (Negative); Specific Gravity,Urine 1.014 (1.001-1.035); Squamous Epithelial Cell,Urine <1 /hpf (0-4); Urobilinogen,Urine <2.0 mg/dL (<2.0)
[2018-12-14 16:16] LABS: ALT 20 U/L (9-52); AST 33 U/L (14-36); Albumin 3.3 g/dL (3.5-5.0); Alkaline Phosphatase 96 U/L (38-126); Anion Gap 7 mmol/L; Blood Urea Nitrogen 9 mg/dL (7-17); Carbon Dioxide 21 mmol/L (22-30); Chloride 111 mmol/L (98-107); Glucose 105 mg/dL (74-99); Potassium 3.5 mmol/L (3.5-5.1); Sodium 139 mmol/L (137-145); Total Bilirubin 0.6 mg/dL (0.2-1.3); Total Protein 6.2 g/dL (6.3-8.2)
--- NOTE | 2018-12-14 16:16 | CT ---
EXAMINATION TYPE: CT lumbar spine w con DATE OF EXAM: 12/14/2018 COMPARISON: None HISTORY: 38-year-old female Low back pain after stretching today TECHNIQUE: Contiguous axial scanning of the lumbar spine performed with IV Contrast, patient injected with 100 mL of Isovue 300. Coronal and sagittal reconstructions performed. CT DLP: 656.5 mGycm Automated exposure control for dose reduction was used. FINDINGS: Large patient body habitus results in mild noise artifacts. Vertebral body heights are preserved and alignment is maintained. No pars interarticularis defect. There may be minimal disc bulging at L4-L5 and L5-S1. No evident spinal canal stenosis or significant neuroforaminal stenosis on either side. Bulky appearance to the partially visualized liver. No prevertebral or paravertebral soft tissue abnormality. IMPRESSION: 1. MILD BULGING DISCS AT L4-L5 AND L5-S1. NO SIGNIFICANT SPINAL CANAL OR FORAMINAL STENOSIS IDENTIFIE D BY CT. 2. NO VERTEBRAL COMPRESSION COLLAPSE OR MALALIGNMENT.
[2018-12-14 16:47] LABS: Basophils % (A) 1 %; Eosinophils % (A) 1 %; HGB 10.5 gm/dL (11.4-16.0); Hypochromasia Slight; Lymphocytes # (A) 0.2 k/uL (1.0-4.8); Lymphocytes % (A) 9 %; MCH 29.7 pg (25.0-35.0); MCHC 30.9 g/dL (31.0-37.0); MCV 96.3 fL (80.0-100.0); Mean Platelet Volume 7.7; Monocytes # (A) 0.1 k/uL (0-1.0); Monocytes % (A) 2 %; Neutrophils # (A) 2.3 k/uL (1.3-7.7); Neutrophils % (A) 87 %; Platelet Count 245 k/uL (150-450); RBC 3.53 m/uL (3.80-5.40); RDW 14.5 % (11.5-15.5); WBC 2.6 k/uL (3.8-10.6)
[2018-12-14] MEDS ORDERED: ACETAMINOPHEN TAB 325 MG TAB PO STA (16:54)
--- NOTE | 2018-12-14 17:29 | XR ---
EXAMINATION: XR chest 2V DATE AND TIME: 12/14/2018 5:08 PM CLINICAL INDICATION: PHH; Pain TECHNIQUE: Departmental protocol COMPARISON: None FINDINGS: The lungs are clear. The pleural spaces are negative. The cardiac silhouette is not enlarged. The remainder of the mediastinal silhouette is unremarkable. The skeletal structures and soft tissues are negative for acute findings. IMPRESSION: NO ACUTE PROCESS.
[2018-12-14] MEDS ORDERED: VANCOMYCIN IV PER PHARMACY 1 EACH MISC MISCELLANE PRN (18:12)
[2018-12-14] MEDS ORDERED: IBUPROFEN 800 MG TAB PO STA (18:12)
[2018-12-14] MEDS ORDERED: AMPICILLIN-SULBACTAM 3 GM in SODIUM CHLORIDE 0.9% 100 ML IVPB STA (18:13)
[2018-12-14] MEDS ORDERED: VANCOMYCIN 1,250 MG in SODIUM CHLORIDE 0.9% 250 ML IVPB ONE (18:30)
[2018-12-14] MEDS: IBUPROFEN 800 MG TAB PO PRN (22:02)
[2018-12-14] MEDS: ATORVASTATIN 20 MG TAB PO SCH (22:54)
[2018-12-14] MEDS: FAMOTIDINE 20 MG TAB PO SCH (22:54)
[2018-12-14] MEDS: SERTRALINE 100 MG TAB PO SCH (22:54)
[2018-12-14 23:14] VITALS: BMI 26.4
[2018-12-14] MEDS: SODIUM CHLORIDE 0.9% 500 ML 500 ML IV SCH (23:39)
[2018-12-14] MEDS: DOXEPIN 25 MG CAP PO SCH (23:39)
[2018-12-15] MEDS ORDERED: AMPICILLIN-SULBACTAM 3 GM in SODIUM CHLORIDE 0.9% 100 ML IVPB SCH ×2
[2018-12-15] MEDS: PIPERACILLIN-TAZOBACTAM 3.375 GM in SODIUM CHLORIDE 0.9% 100 ML IVPB SCH ×3 (00:59→17:40)
[2018-12-15] MEDS: SODIUM CHLORIDE 0.9% 500 ML 500 ML IV SCH (01:00)
[2018-12-15 01:03] LABS: Amphetamine Screen,Urine Detected (NotDetected); Barbiturate Screen,Urine Not Detected (NotDetected); Benzodiazepines Screen,Urine Not Detected (NotDetected); Cocaine Screen,Urine Not Detected (NotDetected); Methadone Screen, Urine Not Detected (NotDetected); Opiate Screen,Urine Detected (NotDetected); Oxycodone Screen, Urine Detected (NotDetected); Phencyclidine Screen,Urine Not Detected (NotDetected); Tricyclic Antidepressant,Urine Detected (NotDetected); Urn Cannabinoid Scrn Detected (NotDetected)
[2018-12-15 04:28] LABS: Urine Alcohol Negative (Negative); Urine Barbiturate Negative (Negative); Urine Cocaine Negative (Negative); Urine Methadone Negative (Negative); Urine Opiates Negative (Negative); Urine Phencyclidine Negative (Negative)
[2018-12-15] MEDS ORDERED: VANCOMYCIN 1,250 MG in SODIUM CHLORIDE 0.9% 250 ML IVPB SCH (05:00)
[2018-12-15] MEDS ORDERED: NALOXONE 0.4 MG/ML 1 ML VIAL IV PRN (11:05)
[2018-12-15] MEDS: FAMOTIDINE 20 MG TAB PO SCH ×2 (11:28→21:09)
[2018-12-15] MEDS: SERTRALINE 100 MG TAB PO SCH ×2 (11:28→21:09)
[2018-12-15] MEDS ORDERED: MORPHINE SULFATE ER 15 MG TABLET PO STA (11:32)
[2018-12-15] MEDS: ACETAMINOPHEN TAB 325 MG TAB PO PRN (11:44)
[2018-12-15] MEDS: IBUPROFEN 800 MG TAB PO PRN (11:47)
--- NOTE | 2018-12-15 13:32 | P.HPIM ---
History of Present Illness Chief Complaint: Back pain This is a 38-year-old female with a past medical history significant for IV drug abuse. Her last time she took heroine was 2 days ago through her left hand at the dorsal surface. She was recently admitted on 12/05/2018 for abscess of her for home. She underwent I&D. Infectious disease saw her and she was eventually discharged on Keflex. She said that yesterday after stretching she suddenly started having pain in the lower back which was excruciating radiating down to her right leg posteriorly. She described the pain as 10 x 10 intensity and she is a very to 20 minutes to go down the stairs to get into the car to come to the ER. She says the pain is much better controlled at this time and rates it a 2 x 10 intensity. She denies any loss of bowel or bladder control, no numbness of her lower extremities no weakness of her lower extremities. She said that she was having fevers yesterday. She does not complain of any chest pain or racing heart, no cough no shortness breath, no abdominal pain, nausea and vomiting, or diarrhea constipation, no itch no rash. ER course-temperature 90.8 pulse 70 respirations 14 blood pressure 125/83 satting 99% on room air. Labwork was initial WBC 2.6 hemoglobin 10.5 platelets 245 sodium 139 potassium 3.5 bun 9 creatinine 0.45. Urine drug screen was positive for opiates TCAs amphetamines and marijuana UA was negative. Patient was initially started on Unasyn and admitted to the hospitalist service a further management. Review of Systems All systems: negative Past Medical History Past Medical History: Hyperlipidemia, Osteoarthritis (OA) History of Any Multi-Drug Resistant Organisms: None Reported Past Surgical History: Appendectomy Additional Past Surgical History / Comment(s): LEEP; I&D of abcess in right AC space 11/2018; I&D right femoral space in 08/2018. 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 Also currently smokes meth. - Past Family History Mother Family Medical History: Hypertension, Rheumatoid Arthritis (RA) Brother(s) Family Medical History: Asthma Medications and Allergies Home Medications Medication Instructions Recorded Confirmed Type Atorvastatin Calcium [Lipitor] 20 mg PO HS 08/26/14 12/14/18 History Sertraline [Zoloft] 100 mg PO DAILY 08/26/14 12/14/18 History Ergocalciferol [Vitamin D2] 50,000 unit PO TH 10/22/15 12/14/18 History Ranitidine HCl [Zantac] 150 mg PO BID 10/22/15 12/14/18 History SUMAtriptan SUCCINATE [Imitrex] 100 mg PO DAILY PRN 10/22/15 12/14/18 History Cephalexin [Keflex] 500 mg PO Q6HR #40 cap 12/07/18 12/14/18 Rx Doxepin HCl [SINEquan] 100 mg PO HS 12/14/18 12/14/18 History Ferrous Sulfate [Iron (65 MG 325 mg PO DAILY 12/14/18 12/14/18 History Elemental)] Allergies Allergy/AdvReac Type Severity Reaction Status Date / Time No Known Allergies Allergy Verified 12/14/18 19:48 Physical Exam Vitals: Vital Signs Temp Pulse Pulse Resp BP BP Pulse Ox 12/15/18 07:08 98.0 F 70 14 125/83 99 12/15/18 00:35 98.4 F 80 14 110/75 98 12/14/18 20:59 98.9 F 90 15 118/69 97 12/14/18 19:30 99.1 F 98 18 101/67 99 12/14/18 16:33 101.6 F H 110 H 20 116/63 97 12/14/18 15:00 98.4 F 109 H 18 133/83 99 Intake and Output 12/14/18 12/15/18 12/15/18 22:59 06:59 14:59 Intake Total 180 Output Total 300 Balance -300 180 Intake: Oral 180 Output: Urine 300 Other: Voiding Method Toilet Weight 61.235 kg Results CBC & Chem 7: 12/14/18 14:25 12/14/18 15:48 Labs: Abnormal Lab Results - Last 24 Hours (Table) 12/14/18 12/14/18 12/14/18 Range/Units 14:25 15:31 15:31 WBC 2.6 L (3.8-10.6) k/uL RBC 3.53 L (3.80-5.40) m/uL Hgb 10.5 L (11.4-16.0) gm/dL MCHC 30.9 L (31.0-37.0) g/dL Lymphocytes # 0.2 L (1.0-4.8) k/uL ESR (0-20) mm/hr Chloride (98-107) mmol/L Carbon Dioxide (22-30) mmol/L Creatinine (0.52-1.04) mg/dL Glucose (74-99) mg/dL C-Reactive Protein (<10.0) mg/L Total Protein (6.3-8.2) g/dL Albumin (3.5-5.0) g/dL Urine Appearance Cloudy H (Clear) Urine Mucus Rare H (None) /hpf Urine Opiates Screen (NotDetected) Ur Oxycodone Screen (NotDetected) U Tricyclic Antidepress (NotDetected) Ur Amphetamine Screen Positive H (Negative) ng/mL Ur Amphetamines Screen (NotDetected) U Methamphetamines Scrn (NotDetected) U Cannabinoids Screen Positive H (Negative) ng/mL U Marijuana (THC) Screen (NotDetected) 12/14/18 12/14/18 12/14/18 Range/Units 15:48 15:48 18:47 WBC (3.8-10.6) k/uL RBC (3.80-5.40) m/uL Hgb (11.4-16.0) gm/dL MCHC (31.0-37.0) g/dL Lymphocytes # (1.0-4.8) k/uL ESR 25 H (0-20) mm/hr Chloride 111 H (98-107) mmol/L Carbon Dioxide 21 L (22-30) mmol/L Creatinine 0.45 L (0.52-1.04) mg/dL Glucose 105 H (74-99) mg/dL C-Reactive Protein 55.1 H (<10.0) mg/L Total Protein 6.2 L (6.3-8.2) g/dL Albumin 3.3 L (3.5-5.0) g/dL Urine Appearance (Clear) Urine Mucus (None) /hpf Urine Opiates Screen (NotDetected) Ur Oxycodone Screen (NotDetected) U Tricyclic Antidepress (NotDetected) Ur Amphetamine Screen (Negative) ng/mL Ur Amphetamines Screen (NotDetected) U Methamphetamines Scrn (NotDetected) U Cannabinoids Screen (Negative) ng/mL U Marijuana (THC) Screen (NotDetected) 12/15/18 Range/Units 00:00 WBC (3.8-10.6) k/uL RBC (3.80-5.40) m/uL Hgb (11.4-16.0) gm/dL MCHC (31.0-37.0) g/dL Lymphocytes # (1.0-4.8) k/uL ESR (0-20) mm/hr Chloride (98-107) mmol/L Carbon Dioxide (22-30) mmol/L Creatinine (0.52-1.04) mg/dL Glucose (74-99) mg/dL C-Reactive Protein (<10.0) mg/L Total Protein (6.3-8.2) g/dL Albumin (3.5-5.0) g/dL Urine Appearance (Clear) Urine Mucus (None) /hpf Urine Opiates Screen Detected H (NotDetected) Ur Oxycodone Screen Detected H (NotDetected) U Tricyclic Antidepress Detected H (NotDetected) Ur Amphetamine Screen (Negative) ng/mL Ur Amphetamines Screen Detected H (NotDetected) U Methamphetamines Scrn Detected H (NotDetected) U Cannabinoids Screen (Negative) ng/mL U Marijuana (THC) Screen Detected H (NotDetected) Microbiology - Last 24 Hours (Table) 12/14/18 14:25 Blood Culture Gram Stain - Preliminary Blood 12/14/18 14:25 Blood Culture - Final Blood Thrombosis Risk Factor Assmnt - Choose All That Apply Each Factor Represents 1 point: Sepsis (< 1month) Thrombosis Risk Factor Assessment Total Risk Factor Score: 1 Thrombosis Risk Factor Assessment Level: Low Risk Assessment and Plan Plan: - Acute on chronic back pain - Gram-negative bacilli bacteremia - Narcotic withdrawals. Last and the patient injected heroine was 48 hours ago - History of recent right forearm abscess status post I&D patient was on Keflex - History of IVDA Plan - We'll admit the patient to [facility] with telemetry - We'll continue IV fluids at 100 mL an hour - Infectious disease consulted for the expert recommendations - Antibiotics as per ID recommendations - Patient seems to be withdrawing from narcotics. We'll put on Xanax and clonidine as needed. - Patient was in 1 time dose of morphine sulfate 15 mg orally. - Patient was initially planning to leave AMA as she was withdrawing from narcotics. She seemed to settle down after receiving morphine sulfate. She was instructed that she has bacteremia and it could be dangerous if she leaves AMA and she does not get correct treatment patient showed understanding and was emotional she said that she will wants to stay. - We'll discuss with ID to see the patient might need MRI of the lumbar spine to rule out any abscess as the blood cultures are positive - DVT and GI prophylaxis - We'll order for lab work in the morning - Expected length of stay more than 2 midnights - Patient is full code Time with Patient: Greater than 30
[2018-12-15] MEDS: LORazepam 0.5 MG TAB PO PRN (17:39)
[2018-12-15] MEDS: SODIUM CHLORIDE 0.9% 1,000 ML IV SCH (17:40)
[2018-12-15] MEDS: ATORVASTATIN 20 MG TAB PO SCH (21:09)
[2018-12-15] MEDS: DOXEPIN 25 MG CAP PO SCH (21:09)
--- NOTE | 2018-12-15 21:45 | P.CONS ---
History of Present Illness - Reason for Consult Consult date: 12/15/18 Sepsis and bacteremia Requesting physician: Frankie Duncan - Chief Complaint Low back pain 1 day - History of Present Illness Patient is a 38-year-old female was recently admitted at this facility patient did have right antecubital fossa abscess from IV drug use patient is status post drainage of that abscess culture positive for Streptococcus species, patient was discharged home on oral Keflex , patient was supposed to go to rehab however did not go and continue to use IV drugs last IV drug use was about 2 days ago. Patient presented to the ER at [facility] with excruciating low back pain that started yesterday evening patient is a lower back area intensity of almost 10 out of 10 with radiation to the right leg denies having any weaknes s in the leg no bowel or bladder problem, with these symptoms the patient was evaluated by the ER physician on the Route via the patient did have fever of 1 1F mild tachycardia with a heart rate of 90. did have leukopenia CT of the lumbosacral spine was suggestive of degenerative changes at L5-S1 level patient subsequently has been admitted hospital blood culture were obtained and was started on vancomycin and Zosyn this morning blood culture were positive with gram-negative bacilli hence infectious disease was consulted for further recommendation regarding antibiotic therapy Review of Systems CONSTITUTIONAL: Positive for weakness. Fever EYES: No complaint. ENT:No complaint. RESPIRATORY: No complaint. CARDIOVASCULAR: No complaint. GENITOURINARY: No complaint. GASTROINTESTINAL: No complaint. MUSCULOSKELETAL: As per history of present illness. INTEGUMENTARY: No complaint. PSYCHOLOGICAL: No complaint. ENDOCRINE: No complaint. NEUROLOGIC: No complaint. Past Medical History Past Medical History: Hyperlipidemia, Osteoarthritis (OA) History of Any Multi-Drug Resistant Organisms: None Reported Past Surgical History: Appendectomy Additional Past Surgical History / Comment(s): LEEP; I&D of abcess in right AC space 11/2018; I&D right femoral space in 08/2018. 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 Also currently smokes meth. - Past Family History Mother Family Medical History: Hypertension, Rheumatoid Arthritis (RA) Brother(s) Family Medical History: Asthma Medications and Allergies Home Medications Medication Instructions Recorded Confirmed Type Atorvastatin Calcium [Lipitor] 20 mg PO HS 08/26/14 12/14/18 History Sertraline [Zoloft] 100 mg PO DAILY 08/26/14 12/14/18 History Ergocalciferol [Vitamin D2] 50,000 unit PO TH 10/22/15 12/14/18 History Ranitidine HCl [Zantac] 150 mg PO BID 10/22/15 12/14/18 History SUMAtriptan SUCCINATE [Imitrex] 100 mg PO DAILY PRN 10/22/15 12/14/18 History Cephalexin [Keflex] 500 mg PO Q6HR #40 cap 12/07/18 12/14/18 Rx Doxepin HCl [SINEquan] 100 mg PO HS 12/14/18 12/14/18 History Ferrous Sulfate [Iron (65 MG 325 mg PO DAILY 12/14/18 12/14/18 History Elemental)] Allergies Allergy/AdvReac Type Severity Reaction Status Date / Time No Known Allergies Allergy Verified 12/14/18 19:48 Physical Exam Vitals: Vital Signs Temp Pulse Pulse Resp BP BP Pulse Ox 12/15/18 07:08 98.0 F 70 14 125/83 99 12/15/18 00:35 98.4 F 80 14 110/75 98 12/14/18 20:59 98.9 F 90 15 118/69 97 12/14/18 19:30 99.1 F 98 18 101/67 99 12/14/18 16:33 101.6 F H 110 H 20 116/63 97 12/14/18 15:00 98.4 F 109 H 18 133/83 99 Intake and Output 12/14/18 12/15/18 12/15/18 22:59 06:59 14:59 Intake Total 180 Output Total 300 Balance -300 180 Intake: Oral 180 Output: Urine 300 Other: Voiding Method Toilet Weight 61.235 kg GENERAL DESCRIPTION: Middle-aged female lying in bed, no distress. No tachypnea or accessory muscle of respiration use. HEENT: Shows Pallor , no scleral icterus. Oral mucous membrane is dry. No pharyngeal erythema or thrush NECK: Trachea central, no thyromegaly. LUNGS: Unlabored breathing. Clear to auscultation anteriorly. No wheeze or crackle. HEART: S1, S2, regular rate and rhythm. No loud murmur ABDOMEN: Soft, no tenderness , guarding or rigidity, no organomegaly EXTREMITIES: No edema of feet. MUSCULOSKELETAL : Mild tenderness in the lumbar spine area and no swelling no redness SKIN: No rash, no masses palpable. NEUROLOGICAL: The patient is awake, alert, oriented x3, mood and affect normal. Results CBC & Chem 7: 12/14/18 14:25 12/14/18 15:48 Labs: Abnormal Lab Results - Last 24 Hours (Table) 12/14/18 12/14/18 12/14/18 Range/Units 14:25 15:31 15:31 WBC 2.6 L (3.8-10.6) k/uL RBC 3.53 L (3.80-5.40) m/uL Hgb 10.5 L (11.4-16.0) gm/dL MCHC 30.9 L (31.0-37.0) g/dL Lymphocytes # 0.2 L (1.0-4.8) k/uL ESR (0-20) mm/hr Chloride (98-107) mmol/L Carbon Dioxide (22-30) mmol/L Creatinine (0.52-1.04) mg/dL Glucose (74-99) mg/dL C-Reactive Protein (<10.0) mg/L Total Protein (6.3-8.2) g/dL Albumin (3.5-5.0) g/dL Urine Appearance Cloudy H (Clear) Urine Mucus Rare H (None) /hpf Urine Opiates Screen (NotDetected) Ur Oxycodone Screen (NotDetected) U Tricyclic Antidepress (NotDetected) Ur Amphetamine Screen Positive H (Negative) ng/mL Ur Amphetamines Screen (NotDetected) U Methamphetamines Scrn (NotDetected) U Cannabinoids Screen Positive H (Negative) ng/mL U Marijuana (THC) Screen (NotDetected) 12/14/18 12/14/18 12/14/18 Range/Units 15:48 15:48 18:47 WBC (3.8-10.6) k/uL RBC (3.80-5.40) m/uL Hgb (11.4-16.0) gm/dL MCHC (31.0-37.0) g/dL Lymphocytes # (1.0-4.8) k/uL ESR 25 H (0-20) mm/hr Chloride 111 H (98-107) mmol/L Carbon Dioxide 21 L (22-30) mmol/L Creatinine 0.45 L (0.52-1.04) mg/dL Glucose 105 H (74-99) mg/dL C-Reactive Protein 55.1 H (<10.0) mg/L Total Protein 6.2 L (6.3-8.2) g/dL Albumin 3.3 L (3.5-5.0) g/dL Urine Appearance (Clear) Urine Mucus (None) /hpf Urine Opiates Screen (NotDetected) Ur Oxycodone Screen (NotDetected) U Tricyclic Antidepress (NotDetected) Ur Amphetamine Screen (Negative) ng/mL Ur Amphetamines Screen (NotDetected) U Methamphetamines Scrn (NotDetected) U Cannabinoids Screen (Negative) ng/mL U Marijuana (THC) Screen (NotDetected) 12/15/18 Range/Units 00:00 WBC (3.8-10.6) k/uL RBC (3.80-5.40) m/uL Hgb (11.4-16.0) gm/dL MCHC (31.0-37.0) g/dL Lymphocytes # (1.0-4.8) k/uL ESR (0-20) mm/hr Chloride (98-107) mmol/L Carbon Dioxide (22-30) mmol/L Creatinine (0.52-1.04) mg/dL Glucose (74-99) mg/dL C-Reactive Protein (<10.0) mg/L Total Protein (6.3-8.2) g/dL Albumin (3.5-5.0) g/dL Urine Appearance (Clear) Urine Mucus (None) /hpf Urine Opiates Screen Detected H (NotDetected) Ur Oxycodone Screen Detected H (NotDetected) U Tricyclic Antidepress Detected H (NotDetected) Ur Amphetamine Screen (Negative) ng/mL Ur Amphetamines Screen Detected H (NotDetected) U Methamphetamines Scrn Detected H (NotDetected) U Cannabinoids Screen (Negative) ng/mL U Marijuana (THC) Screen Detected H (NotDetected) Microbiology - Last 24 Hours (Table) 12/14/18 14:25 Blood Culture Gram Stain - Preliminary Blood 12/14/18 14:25 Blood Culture - Final Blood Assessment and Plan Assessment: 1-patient admitted hospital with sepsis in this patient who did have a fever tachycardia and leukopenia now with evidence of gram-negative bacteremia in this patient who do have history of IV drug use and admitted with intractable low back pain highly suspicious for discitis with a likely source of the sepsis and bacteremia as the patient currently with no other clinical focus of infection urine has been negative liver enzymes were normal chest x-ray reported negative for any pneumonia abdomen is soft on clinical examination 2-patient with right antecubital fossa wound from drainage of an abscess that wound looks clean with no slough tissue recommend local wound care (1) Gram-negative bacteremia Current Visit: Yes Status: Acute Code(s): R78.81 - BACTEREMIA SNOMED Code(s): 427134168828 (2) Wound of right upper extremity Current Visit: Yes Status: Acute Code(s): S41.101A - UNSPECIFIED OPEN WOUND OF RIGHT UPPER ARM, INITIAL ENCOUNTER SNOMED Code(s): 291005902 (3) Sepsis Current Visit: Yes Status: Acute Code(s): A41.9 - SEPSIS, UNSPECIFIED ORGANISM SNOMED Code(s): 62202127 Plan: 1-we will obtain MRI of the lumbosacral spine with contrast for better de finition of underlying pathology 2-patient will be continued on Zosyn 3.375 g every 8 hours, discontinue vancomycin as no gram-positive has been grown 3-blood culture repeated to document clearance of bacteremia 4-Aquacel silver packing of the right antecubital fossa the wound We will follow-up on clinical condition and cultures to further adjust medication if needed Thank you for this consultation will follow this patient along with you Time with Patient: Greater than 30
[2018-12-16] MEDS: PIPERACILLIN-TAZOBACTAM 3.375 GM in SODIUM CHLORIDE 0.9% 100 ML IVPB SCH ×2 (00:40→08:41)
[2018-12-16] MEDS: SODIUM CHLORIDE 0.9% 1,000 ML IV SCH ×3 (00:42→21:00)
[2018-12-16] MEDS: LORazepam 0.5 MG TAB PO PRN ×3 (03:19→15:52)
[2018-12-16 08:14] LABS: HCT 31.1 % (34.0-46.0); HGB 9.9 gm/dL (11.4-16.0); Hypochromasia Slight; MCH 30.8 pg (25.0-35.0); MCHC 31.9 g/dL (31.0-37.0); MCV 96.6 fL (80.0-100.0); Mean Platelet Volume 7.6; Platelet Count 193 k/uL (150-450); RBC 3.21 m/uL (3.80-5.40); RDW 14.3 % (11.5-15.5); WBC 10.1 k/uL (3.8-10.6)
[2018-12-16] MEDS: FAMOTIDINE 20 MG TAB PO SCH ×2 (08:41→21:13)
[2018-12-16 08:58] LABS: Anion Gap 8 mmol/L; Blood Urea Nitrogen 5 mg/dL (7-17); Calcium 8.7 mg/dL (8.4-10.2); Carbon Dioxide 17 mmol/L (22-30); Chloride 114 mmol/L (98-107); Glucose 88 mg/dL (74-99); Sodium 139 mmol/L (137-145)
[2018-12-16] MEDS: ONDANSETRON 4 MG/2 ML VIAL IVP PRN ×3 (09:44→21:19)
[2018-12-16] MEDS ORDERED: TRIMETHOBENZAMIDE 100 MG/ML 2 ML VIAL IM STA (11:09)
[2018-12-16] MEDS: CEFEPIME 2 GM in SODIUM CHLORIDE 0.9% 100 ML IVPB SCH ×2 (11:50→23:16)
[2018-12-16] MEDS ORDERED: VANCOMYCIN TROUGH DUE 1 EACH MISC MISCELLANE ONE (12:00)
--- NOTE | 2018-12-16 12:45 | CDI ---
Documentation Clarification Form Date: 12/16/2018 12:25:47 PM From: Priya Burleson RN CCDS Admit Date: 12/14/2018 6:55:00 PM Patient Name: Alejandra Thompson Visit Number: [id number] Discharge Date: ATTENTION: The Clinical Documentation Specialists (CDI) and [facility] Coding Staff appreciate your assistance in clarifying documentation. Please respond to the clarification below the line at the bottom and electronically sign. The CDI & [facility] Coding staff will review the response and follow-up if needed. Please note: Queries are made part of the Legal Health Record. If you have any questions, please contact the author of this message via ITS. Dr. Frankie Duncan Bacteremia documented in the [facility]. Patient history/risk factors: 38 year old female presents to the ED with low back pain. Medical history of IVDA and recent Antecubital abscess. Clinical Indicators: Wbc 2.6, esr 25, C- Reactive protein 55.1, Blood Culture: Enterobacter cloacae Consult: ID consult Sepsis with gram negative bacteremia Treatment: Tylenol Antibiotics Cefepime ivpb Bacteremia is considered a lab finding. Please clarify if that lab finding is clinical indicator of a more definitive medical diagnosis such as: * Sepsis with Gram Negative Bacteremia * Other, please specify * Unable to determine (Last Revision: May 2017) Sepsis with Gram Negative Bacteremia [facility]
[2018-12-16] MEDS ORDERED: MORPHINE SULFATE ER 15 MG TABLET PO STA (12:50)
[2018-12-16] MEDS ORDERED: cloNIDine HCL 0.1 MG TAB PO PRN (15:23)
--- NOTE | 2018-12-16 15:50 | P.PN ---
Subjective This is a 38-year-old female with a past medical history significant for IV drug abuse. Her last time she took heroine was 2 days ago through her left hand at the dorsal surface. She was recently admitted on 12/05/2018 for abscess of her for home. She underwent I&D. Infectious disease saw her and she was eventually discharged on Keflex. She said that yesterday after stretching she suddenly started having pain in the lower back which was excruciating radiating down to her right leg posteriorly. She described the pain as 10 x 10 intensity and she is a very to 20 minutes to go down the stairs to get into the car to come to the ER. She says the pain is much better controlled at this time and rates it a 2 x 10 intensity. She denies any loss of bowel or bladder control, no numbness of her lower extremities no weakness of her lower extremities. She said that she was having fevers yesterday. She does not complain of any chest pain or racing heart, no cough no shortness breath, no abdominal pain, nausea and vomiting, or diarrhea constipation, no itch no rash. On 12/16/2018 Patient says that she was feeling good. She is starting to go into withdrawals due to narcotics. She started throwing up and she was fidgety apparently this morning. She was given Zofran and Tigan. She was also given a dose of MS Contin to help with her symptoms. She is also on Ativan and Catapres. Patient is getting back from MRI of the lumbar spine results are pending at this time of dictation Objective - Vital Signs Vital signs: Vital Signs Temp 98.3 F 12/16/18 07:00 Pulse 69 12/16/18 07:00 Resp 16 12/16/18 07:30 BP 149/89 12/16/18 07:00 Pulse Ox 97 12/16/18 07:00 Intake & Output 12/15/18 12/16/18 12/16/18 18:59 06:59 18:59 Intake Total 1610 900 Balance 1610 900 Intake: Intake, IV Titration 750 900 Amount Piperacillin-Tazobactam 3 100 100 .375 gm In Sodium Chloride 0.9% 100 ml @ 25 mls/hr IVPB Q8HR [facility] Rx# :[id number] Sodium Chloride 0.9% 1, 650 800 000 ml @ 100 mls/hr IV . Q10H [facility] Rx#:[id number] Oral 860 Other: Voiding Method Toilet Toilet # Voids 2 - Exam On exam, alert and oriented x3. HEENT: Conjunctivae normal. eyes normal. NECK: No JVD. No thyroid enlargement. No LNs CARDIOVASCULAR: S1, S2 muffled. No murmur RESPIRATION: Breath sounds diminished in the bases. No rhonchi or crackles. No bronchial breathing. ABDOMEN: Soft, nontender . No guarding. no masses palpable. No ascites, No hepatosplenomegaly.Bowel sounds heard. LEGS: No edema. no swelling NERVOUS SYSTEM: Cranial N 2-12 grossly normal. Moves all 4 limbs. No focal deficits. No sensory deficit. No signs of cerebellar dysfucntion. Skin: no ulcer no rash - Labs CBC & Chem 7: 12/16/18 06:39 12/16/18 06:39 Labs: Abnormal Lab Results - Last 24 Hours (Table) 12/16/18 12/16/18 Range/Units 06:39 06:39 RBC 3.21 L (3.80-5.40) m/uL Hgb 9.9 L (11.4-16.0) gm/dL Hct 31.1 L (34.0-46.0) % Chloride 114 H (98-107) mmol/L Carbon Dioxide 17 L (22-30) mmol/L BUN 5 L (7-17) mg/dL Creatinine 0.48 L (0.52-1.04) mg/dL Microbiology - Last 24 Hours (Table) 12/14/18 14:25 Blood Culture Gram Stain - Final Blood Blood Culture - Final Enterobacter cloacae Assessment and Plan Plan: - Acute on chronic back pain - Gram-negative bacilli bacteremia - Narcotic withdrawals. Last and the patient injected heroine was 48 hours ago - History of recent right forearm abscess status post I&D patient was on Keflex - History of IVDA Plan - Continue antibiotics as per infectious disease recommendations - Patient does came in from the MRI of the lumbar spine. We'll wait for the results - Patient was having nausea vomiting was agitated this morning. She was given Tigan and Zofran. She was also given a dose of MS Contin to help with her symptoms. Patient seems to be doing better now. She is also on Ativan and Catapres - Continue current medical care - We'll continue to follow the patient Time with Patient: Less than 30
--- NOTE | 2018-12-16 17:58 | MR ---
EXAMINATION TYPE: MR lumbar spine wo/w con DATE OF EXAM: 12/16/2018 COMPARISON: CT 12/24/2018 HISTORY: 38-year-old female Back pain and bacteremia, evaluate for possible discitis Technique: Multiplanar, multisequence images of the lumbar spine were obtained before and after admin istration of 6.5 mL intravenous Gadavist gadolinium contrast. FINDINGS: Vertebral body heights are preserved and alignment is maintained. Relatively low marrow signal compatible with red marrow in this relatively younger patient. Minimal bulging disc at L4-L5 and L5-S1 without focal disc herniation. All of the intervertebral disc s remain well-hydrated. No significant spinal canal or neuroforaminal stenosis is identified. No abnormal enhancement within the spinal canal. Normal conus medullaris. No prevertebral or paravertebral soft tissue abnormality seen. IMPRESSION: Minimal disc bulging at L4-L5 and L5-S1. Otherwise, normal MRI lumbar spine. No evidence for discitis osteomyelitis. Intervertebral discs remain well-hydrated.
--- NOTE | 2018-12-16 18:27 | PN ---
PROGRESS NOTE DATE OF SERVICE: 12/16/2018 REASON FOR FOLLOWUP: Gram-negative bacteremia and sepsis. INTERVAL HISTORY: The patient's overall fever pattern has improved. No fever has been reported today. The patient has been breathing comfortably. No chest pain or any cough or abdominal pain. Her back pain is currently controlled with pain medication. No diarrhea. PHYSICAL EXAMINATION: Blood pressure 138/62 with a pulse of 99, temperature 98.8. She is 99% on room air. General description is a middle-aged female lying in bed in no distress. RESPIRATORY SYSTEM: Unlabored breathing. Clear to auscultation with crackles, The lumbar spine is currently with no significant tenderness. EXTREMITIES: No edema of feet. LABS: Hemoglobin 9.9, white count 10.1 with a BUN of 5, creatinine 0.48. Blood culture has been finalized with Enterobacter cloacae. DIAGNOSTIC IMPRESSION AND PLAN: Patient admitted to hospital with sepsis in a patient who did have significant low back pain and enterobacter bacteremia. The patient's UA has been negative. Abdomen was soft on clinical examination. Chest x-ray was negative. Concern for possible diskitis. Waiting for the MRI of the lumbosacral spine with contrast. Antibiotic will be adjusted to cefepime 2 grams q.12 to better cover for the enterobacter. Blood culture has been repeated, closely followed. Continue with supportive care. MMODL / IJN: [id number] /
[2018-12-16] MEDS: DOXEPIN 25 MG CAP PO SCH (21:11)
[2018-12-16] MEDS: LORazepam 1 MG TAB PO SCH (21:13)
[2018-12-16] MEDS: SERTRALINE 100 MG TAB PO SCH (21:13)
[2018-12-16] MEDS: ATORVASTATIN 20 MG TAB PO SCH (21:13)
[2018-12-17] MEDS: SODIUM CHLORIDE 0.9% 1,000 ML IV SCH ×2 (06:16→17:15)
[2018-12-17] MEDS: LORazepam 0.5 MG TAB PO PRN ×2 (07:14→17:37)
[2018-12-17] MEDS: ONDANSETRON 4 MG/2 ML VIAL IVP PRN ×2 (07:14→17:38)
[2018-12-17] MEDS: FAMOTIDINE 20 MG TAB PO SCH ×2 (07:14→21:24)
[2018-12-17 09:10] LABS: HCT 32.9 % (34.0-46.0); HGB 10.9 gm/dL (11.4-16.0); MCH 30.6 pg (25.0-35.0); MCHC 33.2 g/dL (31.0-37.0); MCV 92.3 fL (80.0-100.0); Mean Platelet Volume 7.4; Platelet Count 273 k/uL (150-450); RBC 3.57 m/uL (3.80-5.40); RDW 14.4 % (11.5-15.5); WBC 9.5 k/uL (3.8-10.6)
[2018-12-17 09:34] LABS: Anion Gap 11 mmol/L; Blood Urea Nitrogen 3 mg/dL (7-17); Calcium 9.3 mg/dL (8.4-10.2); Carbon Dioxide 24 mmol/L (22-30); Chloride 105 mmol/L (98-107); Glucose 100 mg/dL (74-99); Potassium 3.8 mmol/L (3.5-5.1); Sodium 140 mmol/L (137-145)
[2018-12-17] MEDS: CEFEPIME 2 GM in SODIUM CHLORIDE 0.9% 100 ML IVPB SCH (11:50)
--- NOTE | 2018-12-17 15:39 | P.PN ---
Subjective This is a 38-year-old female with a past medical history significant for IV drug abuse. Her last time she took heroine was 2 days ago through her left hand at the dorsal surface. She was recently admitted on 12/05/2018 for abscess of her for home. She underwent I&D. Infectious disease saw her and she was eventually discharged on Keflex. She said that yesterday after stretching she suddenly started having pain in the lower back which was excruciating radiating down to her right leg posteriorly. She described the pain as 10 x 10 intensity and she is a very to 20 minutes to go down the stairs to get into the car to come to the ER. She says the pain is much better controlled at this time and rates it a 2 x 10 intensity. She denies any loss of bowel or bladder control, no numbness of her lower extremities no weakness of her lower extremities. She said that she was having fevers yesterday. She does not complain of any chest pain or racing heart, no cough no shortness breath, no abdominal pain, nausea and vomiting, or diarrhea constipation, no itch no rash. 12/16/2018 Patient says that she was feeling good. She is starting to go into withdrawals due to narcotics. She started throwing up and she was fidgety apparently this morning. She was given Zofran and Tigan. She was also given a dose of MS Contin to help with her symptoms. She is also on Ativan and Catapres. Patient is getting back from MRI of the lumbar spine results are pending at this time of dictation 12/17/2018 Patient says that she's doing good She did not have any nausea vomiting today. She is improving and her symptoms of narcotic withdrawals. She does not complain of any chest pain racing heart No cough no shortness of breath Objective - Vital Signs Vital signs: Vital Signs Temp 98.3 F 12/17/18 14:44 Pulse 83 12/17/18 14:44 Resp 16 12/17/18 14:44 BP 132/88 12/17/18 14:44 Pulse Ox 100 12/17/18 14:44 Intake & Output 12/16/18 12/17/18 12/17/18 18:59 06:59 18:59 Intake Total 540 Balance 540 Intake: Oral 540 Other: Voiding Method Toilet Toilet # Voids 2 2 - Exam On exam, alert and oriented x3. HEENT: Conjunctivae normal. eyes normal. NECK: No JVD. No thyroid enlargement. No LNs CARDIOVASCULAR: S1, S2 muffled. No murmur RESPIRATION: Breath sounds diminished in the bases. No rhonchi or crackles. No bronchial breathing. ABDOMEN: Soft, nontender . No guarding. no masses palpable. No ascites, No hepatosplenomegaly.Bowel sounds heard. LEGS: No edema. no swelling NERVOUS SYSTEM: Cranial N 2-12 grossly normal. Moves all 4 limbs. No focal deficits. No sensory deficit. No signs of cerebellar dysfucntion. Skin: no ulcer no rash - Labs CBC & Chem 7: 12/17/18 08:07 12/17/18 08:07 Labs: Abnormal Lab Results - Last 24 Hours (Table) 12/17/18 12/17/18 Range/Units 08:07 08:07 RBC 3.57 L (3.80-5.40) m/uL Hgb 10.9 L (11.4-16.0) gm/dL Hct 32.9 L (34.0-46.0) % BUN 3 L (7-17) mg/dL Creatinine 0.49 L (0.52-1.04) mg/dL Glucose 100 H (74-99) mg/dL Microbiology - Last 24 Hours (Table) 12/16/18 06:39 Blood Culture - Preliminary Blood No Growth after 24 hours 12/14/18 14:25 Blood Culture Gram Stain - Final Blood Blood Culture - Final Enterobacter cloacae Assessment and Plan Plan: - Acute on chronic back pain - Gram-negative bacilli bacteremia - Narcotic withdrawals. Last and the patient injected heroine was 48 hours ago - History of recent right forearm abscess status post I&D patient was on Keflex - History of IVDA Plan - Continue symptomatic support for her narcotic withdrawals patient is doing better - Continue antibiotics as per ID recommendations. Antibiotics switched to cefepime - MRI negative for any discitis or osteomyelitis changes - Possible discharge in the next 24-48 hours depending upon patient's response and ID recommendations
--- NOTE | 2018-12-17 16:02 | PN ---
PROGRESS NOTE DATE OF SERVICE: 12/17/2018 REASON FOR FOLLOWUP: Enterobacter bacteremia. INTERVAL HISTORY: The patient is currently afebrile. The patient overall is feeling better, breathing comfortably. The patient denies having any chest pain or shortness of breath or cough. No abdominal pain or any diarrhea. PHYSICAL EXAMINATION: Blood pressure 132/88 with a pulse of 83, temperature 98.3. She is 100% on room air. General description is a middle-aged female lying in bed in no distress. RESPIRATORY SYSTEM: Unlabored breathing. Clear to auscultation anteriorly. HEART: S1, S2. Regular rate and rhythm. ABDOMEN: Soft. No tenderness. Right antecubital fossa wound is currently dressed up; no obvious drainage on the dressing. LABS: Hemoglobin is 10.9, white count 9.5, BUN of 3, creatinine 0.49. MRI of the lumbosacral spine was negative for any diskitis. DIAGNOSTIC IMPRESSION AND PLAN: Patient with Enterobacter cloacae bacteremia. The patient did have intractable back pain with concern for possible diskitis. That has been ruled out. Urine has been negative. If the patient's follow-up blood culture remains negative, he will be able to finish therapy with oral Cipro. Otherwise, keep patient on IV antibiotic for another 24 hours and reevaluate the patient tomorrow. Continue with supportive care. MMODL / IJN: [id number] /
[2018-12-17] MEDS: SERTRALINE 100 MG TAB PO SCH (21:24)
[2018-12-17] MEDS: LORazepam 1 MG TAB PO SCH (21:24)
[2018-12-17] MEDS: ATORVASTATIN 20 MG TAB PO SCH (21:24)
[2018-12-17] MEDS: DOXEPIN 25 MG CAP PO SCH (21:59)
[2018-12-18] MEDS: CEFEPIME 2 GM in SODIUM CHLORIDE 0.9% 100 ML IVPB SCH ×2 (00:09→13:09)
[2018-12-18] MEDS: SODIUM CHLORIDE 0.9% 1,000 ML IV SCH ×2 (03:30→13:03)
[2018-12-18 04:25] VITALS: RESP 12
[2018-12-18] MEDS: FAMOTIDINE 20 MG TAB PO SCH (09:31)
[2018-12-18] MEDS: LORazepam 0.5 MG TAB PO PRN (10:26)
[2018-12-18] MEDS: ACETAMINOPHEN TAB 325 MG TAB PO PRN (10:26)
[2018-12-18] MEDS: ONDANSETRON 4 MG/2 ML VIAL IVP PRN (10:27)
[2018-12-18 14:33] VITALS: BP 158/91; PULSE 94; TEMP 98
--- NOTE | 2018-12-18 15:55 | P.DS ---
Providers Date of admission: 12/14/18 18:55 Expected date of discharge: 12/18/18 Attending physician: Frankie Duncan MD Consults: 12/15/18 11:03 Consult Physician Routine Consulting Provider: Esteban Faust Consult Reason/Comments: SEPSIS Do you want consulting provider notified?: Already Contacted Primary care physician: [facility] Course: Discharge diagnosis - Acute on chronic back pain - Gram-negative bacilli bacteremia blood cultures positive for Enterobacter cloacae - Narcotic withdrawals. Last and the patient injected heroine was 48 hours ago - History of recent right forearm abscess status post I&D patient was on Keflex - History of IVDA Hospital course This is a 38-year-old female with a past medical history significant for IV drug abuse. Her last time she took heroine was 2 days ago through her left hand at the dorsal surface. She was recently admitted on 12/05/2018 for abscess of her for home. She underwent I&D. Infectious disease saw her and she was eventually discharged on Keflex. She said that yesterday after stretching she suddenly started having pain in the lower back which was excruciating radiating down to her right leg posteriorly. She described the pain as 10 x 10 intensity and she is a very to 20 minutes to go down the stairs to get into the car to come to the ER. She says the pain is much better controlled at this time and rates it a 2 x 10 intensity. She denies any loss of bowel or bladder control, no numbness of her lower extremities no weakness of her lower extremities. She said that she was having fevers yesterday. She does not complain of any chest pain or racing heart, no cough no shortness breath, no abdominal pain, nausea and vomiting, or diarrhea constipation, no itch no rash. Patient was put on antibiotics by infectious disease were consulted. Blood cultures came back positive for Enterobacter claudicate. Patient was also having withdrawals due to narcotics. She was put on clonidine, Ativan and was given MS Contin probably 2 times. Patient did good in terms of withdrawals. After the first today she did not need any more MS Contin and her symptoms were slowly getting better. On 12/18/2018 She said that she's feeling much better She is motivated to continue to quit using narcotics and other IVDA She does not complain of any chest pain racing heart He does not complain of any cough or shortness of breath On exam, alert and oriented x3. HEENT: Conjunctivae normal. eyes normal. NECK: No JVD. No thyroid enlargement. No LNs CARDIOVASCULAR: S1, S2 muffled. No murmur RESPIRATION: Breath sounds diminished in the bases. No rhonchi or crackles. No bronchial breathing. ABDOMEN: Soft, nontender . No guarding. no masses palpable. No ascites, No hepatosplenomegaly.Bowel sounds heard. LEGS: No edema. no swelling NERVOUS SYSTEM: Cranial N 2-12 grossly normal. Moves all 4 limbs. No focal deficits. No sensory deficit. No signs of cerebellar dysfucntion. Skin: no ulcer no rash or patient has track lines especially on the hand of the left side secondary to IV drug abuse Joints: No active swelling. No inflammation. Lymphatic system. No LN neck axilla or groin. Patient was cleared by infectious disease to be discharged On the duration the patient was requiring very minimal amount of Ativan to help with her anxiety. She was also having diarrhea which is improving. She was also having diarrhea which was improving. She was instructed to keep a watch on her diarrhea if it's worsening she needs to come to the ER to get herself checked Patient Condition at Discharge: Fair Plan - Discharge Summary Discharge Rx Participant: No New Discharge Prescriptions: New Ciprofloxacin HCl [Cipro] 500 mg PO Q12HR #20 tablet LORazepam [Ativan] 0.5 mg PO BID PRN 3 Days #6 tab PRN Reason: Agitation Or Acute Anxiety Continue Sertraline [Zoloft] 100 mg PO DAILY Atorvastatin Calcium [Lipitor] 20 mg PO HS Ergocalciferol [Vitamin D2 (DRISDOL)] 50,000 unit PO TH Ranitidine HCl [Zantac] 150 mg PO BID SUMAtriptan SUCCINATE [Imitrex] 100 mg PO DAILY PRN PRN Reason: Migraine Headache Doxepin HCl [SINEquan] 100 mg PO HS Ferrous Sulfate [Iron (65 MG Elemental)] 325 mg PO DAILY Discontinued Cephalexin [Keflex] 500 mg PO Q6HR #40 cap Discharge Medication List Atorvastatin Calcium [Lipitor] 20 mg PO HS 08/26/14 [History] Sertraline [Zoloft] 100 mg PO DAILY 08/26/14 [History] Ergocalciferol [Vitamin D2 (DRISDOL)] 50,000 unit PO TH 10/22/15 [History] Ranitidine HCl [Zantac] 150 mg PO BID 10/22/15 [History] SUMAtriptan SUCCINATE [Imitrex] 100 mg PO DAILY PRN 10/22/15 [History] Doxepin HCl [SINEquan] 100 mg PO HS 12/14/18 [History] Ferrous Sulfate [Iron (65 MG Elemental)] 325 mg PO DAILY 12/14/18 [History] Ciprofloxacin HCl [Cipro] 500 mg PO Q12HR #20 tablet 12/18/18 [Rx] LORazepam [Ativan] 0.5 mg PO BID PRN 3 Days #6 tab 12/18/18 [Rx] Follow up Appointment(s)/Referral(s): Bear Nuñez DO [Primary Care Provider] - 1-2 days (CALL OFFICE TO SCHEDULE APPOINTMENT ON THURSDAY, OFFICE CLOSED AT TIME OF DISCHARGE.) Esteban Faust MD [STAFF PHYSICIAN] - 1 Week (CALL OFFICE ON THURSDAY TO SCHEDULE APPOINTMENT, OFFICE CLOSED AT TIME OF DISCHARGE.) Patient Instructions/Handouts: Sepsis (GEN), Polysubstance Abuse (ED) Activity/Diet/Wound Care/Special Instructions: If you notice any chest pain or racing heart, any cough shortness of breath, any fevers or chills, any lightheadedness or dizziness any loss of consciousness or confusion please come to the ER or call 911 Also please abstain from any further heroine abuse or IV drug abuse as it might be dangerous to health. Discharge Disposition: HOME SELF-CARE
--- NOTE | 2018-12-18 20:16 | PN ---
PROGRESS NOTE DATE OF SERVICE: 12/18/2018. REASON FOR FOLLOWUP: Enterobacter bacteremia. INTERVAL HISTORY: The patient is currently afebrile. The patient is breathing comfortably. Denies having any chest pain or any cough. No abdominal pain. Back pain has improved. No nausea, vomiting, or any diarrhea. PHYSICAL EXAMINATION: Blood pressure 138/91 with a pulse of 94, temperature 98. She is 94% on room air. General description is a middle-aged female up in the room in no distress. Respiratory system: Unlabored breathing. Clear to auscultation. Heart S1, S2. Regular rate and rhythm. No murmur. ABDOMEN: Soft, no tenderness. LABS: Hemoglobin is 10.2, white count 9.5, BUN of 3, creatinine 0.49. Blood culture repeat 12/16 has been negative. DIAGNOSTIC IMPRESSION AND PLAN: Patient with Enterobacter bacteremia in this patient who did have presumptive symptom of significant low back pain. Concern for possible diskitis that has been ruled out. The patient cleared her bacteremia very quickly making it to be less likely an endovascular source. She did not have any loud murmur or any stigmata of endocarditis. We will switch antibiotic therapy to oral Cipro for another 10 days to finish a 2 week course of therapy. The patient has been advised to not miss single doses and to follow up in the office where after completion of antibiotic therapy, blood cultures will be repeated to make sure no recurrence of her bacteremia, though may need further workup. All questions and concerns were answered in layman's terms. Instructions were provided to the patient. Prescription was sent to the pharmacy. VU / MARIELOSN: [id number] /
== END 2018-12-18 16:41 | disposition home or self-care (01) | DRG 872 ==
LOC: EC 14:56 → 4SSUR 18:55
PROVIDERS: ADMIT Internal Medicine; ATTEND Internal Medicine
DX: A41.59 Other Gram-negative sepsis (principal); F11.23 Opioid dependence with withdrawal; D72.819 Decreased white blood cell count, unspecified; E78.5 Hyperlipidemia, unspecified; F15.10 Other stimulant abuse, uncomplicated; F17.210 Nicotine dependence, cigarettes, uncomplicated; F32.9 Major depressive disorder, single episode, unspecified; F41.9 Anxiety disorder, unspecified; F90.9 Attention-deficit hyperactivity disorder, unspecified type; G89.29 Other chronic pain; Z79.899 Other long term (current) drug therapy; Z82.49 Family history of ischemic heart disease and other diseases of the circulatory system; Z82.5 Family history of asthma and other chronic lower respiratory diseases; Z82.61 Family history of arthritis; M51.37 Other intervertebral disc degeneration, lumbosacral region; S51.801A Unspecified open wound of right forearm, initial encounter; Z79.2 Long term (current) use of antibiotics; M19.90 Unspecified osteoarthritis, unspecified site
CPT/HCPCS: 36415; 71046; 72132; 72158; 80048; 80053; 80306; 81001; 81025; 83605; 85025; 85027; 85652; 86140; 87040; 87077; 87186; 93005; 94760; 96361; 96365; 96366; 96375; 99285

== ENCOUNTER 2020-09-26 03:15 | Emergency (ER) | payer OTHER ==
[2020-09-26 03:23] VITALS: RESP 16
[2020-09-26 03:42] LABS: Basophils # (A) 0.1 k/uL (0-0.2); Basophils % (A) 1 %; Eosinophils # (A) 0.3 k/uL (0-0.7); Eosinophils % (A) 4 %; HCT 39.6 % (34.0-46.0); Lymphocytes # (A) 3.6 k/uL (1.0-4.8); Lymphocytes % (A) 43 %; MCH 30.8 pg (25.0-35.0); MCV 93.4 fL (80.0-100.0); Mean Platelet Volume 6.9; Monocytes # (A) 0.6 k/uL (0-1.0); Monocytes % (A) 7 %; Neutrophils # (A) 3.5 k/uL (1.3-7.7); Neutrophils % (A) 42 %; Platelet Count 383 k/uL (150-450); RBC 4.24 m/uL (3.80-5.40); RDW 12.7 % (11.5-15.5); WBC 8.4 k/uL (3.8-10.6)
[2020-09-26 03:51] LABS: Partial Thromboplastin Time 23.1 sec (22.0-30.0); Prothrombin Time 10.4 sec (9.0-12.0)
[2020-09-26 03:55] LABS: African American GFR (CKD) >90 (>60 ml/min/1.73 sqM); Anion Gap 9 mmol/L; Blood Urea Nitrogen 8 mg/dL (7-17); Calcium 9.8 mg/dL (8.4-10.2); Carbon Dioxide 22 mmol/L (22-30); Chloride 104 mmol/L (98-107); Glucose 105 mg/dL (74-99); Non-African American GFR(CKD) >90 (>60 ml/min/1.73 sqM); Potassium 4.5 mmol/L (3.5-5.1); Sodium 135 mmol/L (137-145)
--- NOTE | 2020-09-26 03:55 | ED ---
Female Urogenital HPI - General Chief complaint: Vaginal Bleeding Stated complaint: Vaginal Bleeding Time Seen by Provider: 09/26/20 03:28 Source: patient, EMS, RN notes reviewed, old records reviewed Mode of arrival: EMS - History of Present Illness Initial comments: This is a 40-year-old female DF for evaluation of abdominal pain and vaginal bleeding. Patient states that she is about 78 weeks . Significant bleeding started tonight preacher she's having miscarriage. Patient has had multiple pregnancies with prior miscarriage. Patient also understands she is of extreme maternal age and miscarriage is highly likely. Patient also notes that she was unlikely to keep this baby anyway as it was not with her . Patient has no other medical history takes no medications but does admit to doing drugs MD Complaint: vaginal bleeding -: hour(s) Location: suprapubic Radiation: non-radiating Severity: moderate Severity scale (1-10): 6 Quality: cramping Consistency: constant Improves with: none Worsens with: none Patient : Yes Associated Symptoms: vaginal bleeding - Related Data Sexually active: No Previous Rx's Medication Instructions Recorded Cephalexin [Keflex] 500 mg PO Q6HR #40 cap 09/29/20 Sulfamethox-Tmp 800-160Mg [Bactrim 1 each PO Q12HR #20 tab 09/29/20 Ds] Allergies Allergy/AdvReac Type Severity Reaction Status Date / Time No Known Allergies Allergy Verified 09/29/20 17:11 Review of Systems ROS Statement: Those systems with pertinent positive or pertinent negative responses have been documented in the HPI. ROS Other: All systems not noted in ROS Statement are negative. Past Medical History Past Medical History: Hyperlipidemia, Osteoarthritis (OA) History of Any Multi-Drug Resistant Organisms: None Reported Past Surgical History: Appendectomy Additional Past Surgical History / Comment(s): LEEP; I&D of abcess in right AC space 11/2018; I&D right femoral space in 08/2018. Past Anesthesia/Blood Transfusion Reactions: No Reported Reaction Past Psychological History: ADD/ADHD, Depression Smoking Status: Current every day smoker Past Alcohol Use History: None Reported Past Drug Use History: Heroin, IV Drug Use, Methamphetamine - Past Family History Mother Family Medical History: Hypertension, Rheumatoid Arthritis (RA) Brother(s) Family Medical History: Asthma General Exam General appearance: alert, in no apparent distress Head exam: Present: atraumatic, normocephalic, normal inspection Eye exam: Present: normal appearance, PERRL, EOMI. Absent: scleral icterus, conjunctival injection, periorbital swelling ENT exam: Present: normal exam, mucous membranes moist Neck exam: Present: normal inspection. Absent: tenderness, meningismus, lymphadenopathy Respiratory exam: Present: normal lung sounds bilaterally. Absent: respiratory distress, wheezes, rales, rhonchi, stridor Cardiovascular Exam: Present: regular rate, normal rhythm, normal heart sounds. Absent: systolic murmur, diastolic murmur, rubs, gallop, clicks GI/Abdominal exam: Present: soft, normal bowel sounds. Absent: distended, te nderness, guarding, rebound, rigid Extremities exam: Present: normal inspection, full ROM, normal capillary refill. Absent: tenderness, pedal edema, joint swelling, calf tenderness Back exam: Present: normal inspection Neurological exam: Present: alert, oriented X3, CN II-XII intact Psychiatric exam: Present: normal affect, normal mood Skin exam: Present: warm, dry, intact, normal color. Absent: rash Course Vital Signs 09/26/20 09/26/20 03:16 06:40 Temperature 98.5 F 97.9 F Pulse Rate 98 80 Respiratory 16 16 Rate Blood Pressure 128/95 131/79 O2 Sat by Pulse 98 98 Oximetry - Reevaluation(s) Reevaluation #1: Medical record is reviewed Patient symptoms are improved here in the ER Patient informed results and questions have been answered Patient feels good for discharge home Medical Decision Making - Medical Decision Making 40 female DF for evaluation. Patient with significant bleeding during early about 6 weeks. Patient does have incomplete no heart rate. Patient will follow-up with OB as needed this week - Lab Data Result diagrams: 09/26/20 03:31 09/26/20 03:31 Lab Results 09/26/20 09/26/20 09/26/20 Range/Units 03:31 03:31 03:31 WBC 8.4 (3.8-10.6) k/uL RBC 4.24 (3.80-5.40) m/uL Hgb 13.0 (11.4-16.0) gm/dL Hct 39.6 (34.0-46.0) % MCV 93.4 (80.0-100.0) fL MCH 30.8 (25.0-35.0) pg MCHC 33.0 (31.0-37.0) g/dL RDW 12.7 (11.5-15.5) % Plt Count 383 (150-450) k/uL MPV 6.9 Neutrophils % 42 % Lymphocytes % 43 % Monocytes % 7 % Eosinophils % 4 % Basophils % 1 % Neutrophils # 3.5 (1.3-7.7) k/uL Lymphocytes # 3.6 (1.0-4.8) k/uL Monocytes # 0.6 (0-1.0) k/uL Eosinophils # 0.3 (0-0.7) k/uL Basophils # 0.1 (0-0.2) k/uL PT 10.4 (9.0-12.0) sec INR 1.0 (<1.2) APTT 23.1 (22.0-30.0) sec Sodium 135 L (137-145) mmol/L Potassium 4.5 (3.5-5.1) mmol/L Chloride 104 (98-107) mmol/L Carbon Dioxide 22 (22-30) mmol/L Anion Gap 9 mmol/L BUN 8 (7-17) mg/dL Creatinine 0.55 (0.52-1.04) mg/dL Est GFR (CKD-EPI)AfAm >90 (>60 ml/min/1.73 sqM) Est GFR (CKD-EPI)NonAf >90 (>60 ml/min/1.73 sqM) Glucose 105 H (74-99) mg/dL Calcium 9.8 (8.4-10.2) mg/dL HCG, Quant 1828.0 mIU/mL Blood Type Blood Type Recheck Bld Type Recheck Status 09/26/20 Range/Units 03:31 WBC (3.8-10.6) k/uL RBC (3.80-5.40) m/uL Hgb (11.4-16.0) gm/dL Hct (34.0-46.0) % MCV (80.0-100.0) fL MCH (25.0-35.0) pg MCHC (31.0-37.0) g/dL RDW (11.5-15.5) % Plt Count (150-450) k/uL MPV Neutrophils % % Lymphocytes % % Monocytes % % Eosinophils % % Basophils % % Neutrophils # (1.3-7.7) k/uL Lymphocytes # (1.0-4.8) k/uL Monocytes # (0-1.0) k/uL Eosinophils # (0-0.7) k/uL Basophils # (0-0.2) k/uL PT (9.0-12.0) sec INR (<1.2) APTT (22.0-30.0) sec Sodium (137-145) mmol/L Potassium (3.5-5.1) mmol/L Chloride (98-107) mmol/L Carbon Dioxide (22-30) mmol/L Anion Gap mmol/L BUN (7-17) mg/dL Creatinine (0.52-1.04) mg/dL Est GFR (CKD-EPI)AfAm (>60 ml/min/1.73 sqM) Est GFR (CKD-EPI)NonAf (>60 ml/min/1.73 sqM) Glucose (74-99) mg/dL Calcium (8.4-10.2) mg/dL HCG, Quant mIU/mL Blood Type A Positive Blood Type Recheck A Pos Bld Type Recheck Status No - Radiology Data Radiology results: report reviewed (Ultrasound OB does show positive pole with no heart rate), image reviewed Disposition Clinical Impression: Incomplete Disposition: HOME SELF-CARE Condition: Good Instructions (If sedation given, give patient instructions): Miscarriage (ED), Threatened Miscarriage (ED) Is patient prescribed a controlled substance at d/c from ED?: No Referrals: Pepper Watkins MD [STAFF PHYSICIAN] - 1-2 days
--- NOTE | 2020-09-26 05:57 | US ---
EXAM: US First Trimester , Transabdominal and Transvaginal CLINICAL HISTORY: with pain and spotting. TECHNIQUE: Real-time transabdominal and transvaginal obstetrical ultrasound of the maternal pelvis and a first trimester with image documentation. Transvaginal imaging was used for better evaluation of the fetus and adnexa. COMPARISON: No relevant prior studies available. FINDINGS: Gestation: There does appear to be an intrauterine gestational sac; however, the sac appears mildly irregular in shape and elongated. The average sac diameter is 2.55 cm, corresponding to 7 weeks 2 days. There appears to be a subchorionic hemorrhage measuring 17 x 12 x 22 mm. A small structure is seen within the sac which likely represents a small pole. The crown-rump length is 4.7 mm, corresponding to 6 weeks 1 day. No heart motion is detected. A yolk sac is not clearly seen. Uterus/cervix: Unremarkable. No myometrial mass. Ovaries: Unremarkable. No mass. Free fluid: No free fluid. IMPRESSION: Mildly irregular and elongated gestational sac. Probable pole but no detectable heart motion at 6 weeks 1 day. The findings are suspicious for but not fully diagnostic of a failed . Appearance of a subchorionic hemorrhage.
[2020-09-26 06:41] VITALS: BP 131/79; PULSE 80; TEMP 97.9
== END 2020-09-26 06:58 | disposition home or self-care (01) ==
LOC: EC 03:15
DX: O03.4 Incomplete spontaneous abortion without complication (principal); E78.5 Hyperlipidemia, unspecified; M19.90 Unspecified osteoarthritis, unspecified site; Z87.59 Personal history of other complications of pregnancy, childbirth and the puerperium; Z90.49 Acquired absence of other specified parts of digestive tract; F90.9 Attention-deficit hyperactivity disorder, unspecified type; F32.9 Major depressive disorder, single episode, unspecified; F17.200 Nicotine dependence, unspecified, uncomplicated; Z82.49 Family history of ischemic heart disease and other diseases of the circulatory system; Z82.61 Family history of arthritis; Z82.5 Family history of asthma and other chronic lower respiratory diseases; Z87.898 Personal history of other specified conditions
CPT/HCPCS: 36415; 76801; 76817; 80048; 84702; 85025; 85610; 85730; 86900; 86901; 99285

== ENCOUNTER 2020-09-29 14:04 | Observation (INO) | payer OTHER ==
[2020-09-29] MEDS ORDERED: SODIUM CHLORIDE 0.9% 1,000 ML IV STA ×2 (14:27→14:38)
[2020-09-29] MEDS ORDERED: LIDOCAINE 1%-EPI 1:100,000 20 ML VIAL SQ STA (14:28)
[2020-09-29] MEDS ORDERED: ACETAMINOPHEN TAB 500 MG TAB PO STA (14:28)
[2020-09-29] MEDS ORDERED: SULFAMETHOX-TMP 800-160MG 1 EACH TAB PO STA (14:47)
[2020-09-29] MEDS ORDERED: CEPHALEXIN 500 MG CAP PO STA (14:47)
[2020-09-29 15:09] LABS: Basophils # (A) 0.1 k/uL (0-0.2); Basophils % (A) 0 %; Eosinophils # (A) 0.1 k/uL (0-0.7); Eosinophils % (A) 1 %; HCT 34.2 % (34.0-46.0); Lymphocytes % (A) 18 %; MCH 30.5 pg (25.0-35.0); MCHC 32.3 g/dL (31.0-37.0); MCV 94.5 fL (80.0-100.0); Mean Platelet Volume 7.1; Monocytes # (A) 0.7 k/uL (0-1.0); Monocytes % (A) 6 %; Neutrophils # (A) 8.4 k/uL (1.3-7.7); Neutrophils % (A) 73 %; Platelet Count 319 k/uL (150-450); RBC 3.62 m/uL (3.80-5.40); RDW 13.4 % (11.5-15.5); WBC 11.5 k/uL (3.8-10.6)
[2020-09-29 15:20] LABS: ALT 59 U/L (4-34); AST 41 U/L (14-36); African American GFR (CKD) >90 (>60 ml/min/1.73 sqM); Albumin 3.9 g/dL (3.5-5.0); Alkaline Phosphatase 71 U/L (38-126); Anion Gap 9 mmol/L; Blood Urea Nitrogen 7 mg/dL (7-17); Calcium 9.3 mg/dL (8.4-10.2); Carbon Dioxide 21 mmol/L (22-30); Chloride 104 mmol/L (98-107); Glucose 115 mg/dL (74-99); Non-African American GFR(CKD) >90 (>60 ml/min/1.73 sqM); Potassium 4.1 mmol/L (3.5-5.1); Sodium 134 mmol/L (137-145); Total Bilirubin 0.9 mg/dL (0.2-1.3); Total Protein 7.5 g/dL (6.3-8.2)
--- NOTE | 2020-09-29 15:23 | ED ---
Skin/Abscess/FB HPI - General Chief complaint: Skin/Abscess/Foreign Body Stated complaint: R Arm Abscess Time Seen by Provider: 09/29/20 14:11 Source: patient Mode of arrival: ambulatory Limitations: no limitations - History of Present Illness Initial comments: 40-year-old female presented emergency department with a chief complaint of an abscess. Patient reports she is an IV drug user and typically injects heroin. reports injecting yesterday in her right distal forearm and she noticed some redness to the region. States she woke up this morning and now feels hot and it is progressed proximally along the forearm. She denies any discharge but does report mild swelling at the erythematous region. She denies any chest pain or shortness of breath. Does report fevers but does not have a thermometer at home. She denies history of MRSA.she does have history of injection site abscesses. - Related Data Home Medications Medication Instructions Recorded Confirmed Atorvastatin Calcium [Lipitor] 20 mg PO HS 08/26/14 12/14/18 Sertraline [Zoloft] 100 mg PO DAILY 08/26/14 12/14/18 Ergocalciferol [Vitamin D2 50,000 unit PO TH 10/22/15 12/14/18 (DRISDOL)] Ranitidine HCl [Zantac] 150 mg PO BID 10/22/15 12/14/18 SUMAtriptan SUCCINATE [Imitrex] 100 mg PO DAILY PRN 10/22/15 12/14/18 Doxepin HCl [SINEquan] 100 mg PO HS 12/14/18 12/14/18 Ferrous Sulfate [Iron (65 MG 325 mg PO DAILY 12/14/18 12/14/18 Elemental)] Previous Rx's Medication Instructions Recorded Ciprofloxacin HCl [Cipro] 500 mg PO Q12HR #20 tablet 12/18/18 LORazepam [Ativan] 0.5 mg PO BID PRN 3 Days #6 tab 12/18/18 Cephalexin [Keflex] 500 mg PO Q6HR #40 cap 09/29/20 Sulfamethox-Tmp 800-160Mg [Bactrim 1 each PO Q12HR #20 tab 09/29/20 Ds] Allergies Allergy/AdvReac Type Severity Reaction Status Date / Time No Known Allergies Allergy Verified 09/29/20 17:11 Review of Systems ROS Statement: Those systems with pertinent positive or pertinent negative responses have been documented in the HPI. ROS Other: All systems not noted in ROS Statement are negative. Past Medical History Past Medical History: Hyperlipidemia, Osteoarthritis (OA) History of Any Multi-Drug Resistant Organisms: None Reported Past Surgical History: Appendectomy Additional Past Surgical History / Comment(s): LEEP; I&D of abcess in right AC space 11/2018; I&D right femoral space in 08/2018. Past Anesthesia/Blood Transfusion Reactions: No Reported Reaction Past Psychological History: ADD/ADHD, Depression Smoking Status: Current every day smoker Past Alcohol Use History: None Reported Past Drug Use History: Heroin, IV Drug Use, Methamphetamine - Past Family History Mother Family Medical History: Hypertension, Rheumatoid Arthritis (RA) Brother(s) Family Medical History: Asthma General Exam Limitations: no limitations General appearance: alert, in no apparent distress Head exam: Present: atraumatic, normocephalic, normal inspection Eye exam: Present: normal appearance, PERRL, EOMI Pupils: Present: normal accommodation ENT exam: Present: normal exam, normal oropharynx, mucous membranes moist Neck exam: Present: normal inspection, full ROM. Absent: tenderness Respiratory exam: Present: normal lung sounds bilaterally. Absent: respiratory distress Cardiovascular Exam: Present: regular rate, normal rhythm, normal heart sounds Extremities exam: Present: full ROM, tenderness (tenderness in the cellulitic region.), normal capillary refill, other (+2 ulnar and radial pulses bilaterally.). Absent: normal inspection (erythema on the ventral aspect of her right distal forearm. Multiple injection sites noted in bilateral upper extremities. No signs of fluctuance or discharge. no signs of an abscess), pedal edema, joint swelling, calf tenderness Back exam: Present: normal inspection, full ROM. Absent: tenderness Neurological exam: Present: alert, oriented X3 Psychiatric exam: Present: normal affect, normal mood Skin exam: Present: warm, dry, intact, normal color Course Vital Signs 09/29/20 09/29/20 14:20 15:34 Temperature 101.1 F H 98.5 F Pulse Rate 106 H 77 Respiratory 18 16 Rate Blood Pressure 126/77 121/59 O2 Sat by Pulse 98 99 Oximetry Medical Decision Making - Medical Decision Making 40-year-old female presents to the emergency department with a chief complaint of an abscess. On physical examination, there is definitive cellulitic skin changes noted on the right wrist near the injection site. No signs of an abscess. There is no fluctuance. she is having chest pain or shortness of breath. No detectable heart murmurs. EKG showing sinus rhythm next line chest x-ray is unremarkable. UA shows hematuria. patient initially fit septic criteria with being febrile and tachycardic. Patient was given IV fluids and started on vancomycin. Lactic acid within normal limits. Blood cultures are pending. Patient will be made for further medical management. Case discussed with Admitting is Dr Villafana - Lab Data Result diagrams: 09/29/20 14:45 09/29/20 14:45 Lab Results 09/29/20 09/29/20 09/29/20 Range/Units 14:45 14:45 14:45 WBC 11.5 H (3.8-10.6) k/uL RBC 3.62 L (3.80-5.40) m/uL Hgb 11.0 L (11.4-16.0) gm/dL Hct 34.2 (34.0-46.0) % MCV 94.5 (80.0-100.0) fL MCH 30.5 (25.0-35.0) pg MCHC 32.3 (31.0-37.0) g/dL RDW 13.4 (11.5-15.5) % Plt Count 319 (150-450) k/uL MPV 7.1 Neutrophils % 73 % Lymphocytes % 18 % Monocytes % 6 % Eosinophils % 1 % Basophils % 0 % Neutrophils # 8.4 H (1.3-7.7) k/uL Lymphocytes # 2.0 (1.0-4.8) k/uL Monocytes # 0.7 (0-1.0) k/uL Eosinophils # 0.1 (0-0.7) k/uL Basophils # 0.1 (0-0.2) k/uL Sodium 134 L (137-145) mmol/L Potassium 4.1 (3.5-5.1) mmol/L Chloride 104 (98-107) mmol/L Carbon Dioxide 21 L (22-30) mmol/L Anion Gap 9 mmol/L BUN 7 (7-17) mg/dL Creatinine 0.62 (0.52-1.04) mg/dL Est GFR (CKD-EPI)AfAm >90 (>60 ml/min/1.73 sqM) Est GFR (CKD-EPI)NonAf >90 (>60 ml/min/1.73 sqM) Glucose 115 H (74-99) mg/dL Plasma Lactic Acid Shawn 0.9 (0.7-2.0) mmol/L Calcium 9.3 (8.4-10.2) mg/dL Total Bilirubin 0.9 (0.2-1.3) mg/dL AST 41 H (14-36) U/L ALT 59 H (4-34) U/L Alkaline Phosphatase 71 (38-126) U/L Total Protein 7.5 (6.3-8.2) g/dL Albumin 3.9 (3.5-5.0) g/dL Urine Color Urine Appearance (Clear) Urine pH (5.0-8.0) Ur Specific [place] (1.001-1.035) Urine Protein (Negative) Urine Glucose (UA) (Negative) Urine Ketones (Negative) Urine Blood (Negative) Urine Nitrite (Negative) Urine Bilirubin (Negative) Urine Urobilinogen (<2.0) mg/dL Ur Leukocyte Esterase (Negative) Urine RBC (0-5) /hpf Urine WBC (0-5) /hpf Ur Squamous Epith Cells (0-4) /hpf Urine Mucus (None) /hpf 09/29/20 Range/Units 16:15 WBC (3.8-10.6) k/uL RBC (3.80-5.40) m/uL Hgb (11.4-16.0) gm/dL Hct (34.0-46.0) % MCV (80.0-100.0) fL MCH (25.0-35.0) pg MCHC (31.0-37.0) g/dL RDW (11.5-15.5) % Plt Count (150-450) k/uL MPV Neutrophils % % Lymphocytes % % Monocytes % % Eosinophils % % Basophils % % Neutrophils # (1.3-7.7) k/uL Lymphocytes # (1.0-4.8) k/uL Monocytes # (0-1.0) k/uL Eosinophils # (0-0.7) k/uL Basophils # (0-0.2) k/uL Sodium (137-145) mmol/L Potassium (3.5-5.1) mmol/L Chloride (98-107) mmol/L Carbon Dioxide (22-30) mmol/L Anion Gap mmol/L BUN (7-17) mg/dL Creatinine (0.52-1.04) mg/dL Est GFR (CKD-EPI)AfAm (>60 ml/min/1.73 sqM) Est GFR (CKD-EPI)NonAf (>60 ml/min/1.73 sqM) Glucose (74-99) mg/dL Plasma Lactic Acid Shawn (0.7-2.0) mmol/L Calcium (8.4-10.2) mg/dL Total Bilirubin (0.2-1.3) mg/dL AST (14-36) U/L ALT (4-34) U/L Alkaline Phosphatase (38-126) U/L Total Protein (6.3-8.2) g/dL Albumin (3.5-5.0) g/dL Urine Color Yellow Urine Appearance Clear (Clear) Urine pH 7.0 (5.0-8.0) Ur Specific [place] 1.023 (1.001-1.035) Urine Protein Trace H (Negative) Urine Glucose (UA) Negative (Negative) Urine Ketones Negative (Negative) Urine Blood Moderate H (Negative) Urine Nitrite Negative (Negative) Urine Bilirubin Negative (Negative) Urine Urobilinogen 2.0 (<2.0) mg/dL Ur Leukocyte Esterase Negative (Negative) Urine RBC 4 (0-5) /hpf Urine WBC 1 (0-5) /hpf Ur Squamous Epith Cells <1 (0-4) /hpf Urine Mucus Moderate H (None) /hpf - EKG Data EKG Comments: inverted T-wave lead 3, sinus rhythm Ventricular rate 73, HI 176, QRS 84, QTC 440. Disposition Clinical Impression: Right arm cellulitis, Injection site reaction Disposition: ADMITTED IP TO THIS HOSP Condition: Good Instructions (If sedation given, give patient instructions): Cellulitis (DC) Prescriptions: Sulfamethox-Tmp 800-160Mg [Bactrim Ds] 1 each PO Q12HR #20 tab Cephalexin [Keflex] 500 mg PO Q6HR #40 cap Is patient prescribed a controlled substance at d/c from ED?: No Referrals: Nam Poe MD [Primary Care Provider] - 1-2 days Time of Disposition: 15:39
[2020-09-29] MEDS ORDERED: VANCOMYCIN IV PER PHARMACY 1 EACH MISC MISCELLANE PRN (16:03)
[2020-09-29] MEDS ORDERED: VANCOMYCIN 1,250 MG in SODIUM CHLORIDE 0.9% 250 ML IVPB STA (16:04)
[2020-09-29 16:32] LABS: Appearance,Urine Clear (Clear); Bilirubin,Urine Negative (Negative); Blood,Urine Moderate (Negative); Color,Urine Yellow; Glucose,Urine (UA) Negative (Negative); Ketones,Urine Negative (Negative); Leukocyte Esterase,Urine Negative (Negative); Mucus,Urine Moderate /hpf; Nitrite,Urine Negative (Negative); Protein,Urine Trace (Negative); RBC,Urine 4 /hpf (0-5); Specific Gravity,Urine 1.023 (1.001-1.035); Squamous Epithelial Cell,Urine <1 /hpf (0-4); WBC,Urine 1 /hpf (0-5)
--- NOTE | 2020-09-29 17:22 | XR ---
EXAMINATION TYPE: XR chest 2V DATE OF EXAM: 09/29/2020 COMPARISON: 12/14/2018 HISTORY: Chest pain. Fever. TECHNIQUE: FINDINGS: Heart and mediastinum are normal. Lungs are clear. Diaphragm is normal. Bony thorax is inta ct. IMPRESSION: Normal chest. No change.
[2020-09-29] MEDS ORDERED: IBUPROFEN 400 MG TAB PO PRN (18:26)
[2020-09-29] MEDS ORDERED: NALOXONE 0.4 MG/ML 1 ML VIAL IV PRN (18:26)
[2020-09-29] MEDS ORDERED: LORazepam 2 MG/ML INJ IV PRN (18:26)
[2020-09-29] MEDS ORDERED: MORPHINE SULFATE 4 MG/ML SYRINGE IV PRN (18:26)
[2020-09-29] MEDS ORDERED: HYDROmorphone 0.5 MG/0.5 ML SYRINGE IVP PRN (18:26)
[2020-09-29] MEDS ORDERED: ONDANSETRON 4 MG/2 ML VIAL IVP PRN (18:26)
[2020-09-29] MEDS ORDERED: ACETAMINOPHEN TAB 325 MG TAB PO PRN (18:26)
[2020-09-29] MEDS: traMADol 50 MG TAB PO PRN (20:33)
[2020-09-30] MEDS: SODIUM CHLORIDE 0.9% 1,000 ML IV SCH ×3 (05:27→21:47)
[2020-09-30] MEDS ORDERED: VANCOMYCIN 1,250 MG in SODIUM CHLORIDE 0.9% 250 ML IVPB SCH (06:00)
[2020-09-30] MEDS: traMADol 50 MG TAB PO PRN ×2 (09:08→20:15)
[2020-09-30] MEDS ORDERED: VANCOMYCIN IV PER PHARMACY 1 EACH MISC MISCELLANE PRN (10:37)
[2020-09-30] MEDS ORDERED: KETOROLAC 15 MG/ML 1 ML VIAL IVP PRN (10:48)
[2020-09-30] MEDS ORDERED: NICOTINE POLACRILEX 2 MG GUM BUCCAL PRN (10:50)
[2020-09-30] MEDS: ENOXAPARIN 40 MG/0.4 ML SYRINGE SQ SCH (11:49)
[2020-09-30] MEDS: NICOTINE 21MG/24HR PATCH TRANSDERM SCH (11:49)
[2020-09-30] MEDS: VANCOMYCIN 1,000 MG in SODIUM CHLORIDE 0.9% 250 ML IVPB SCH ×2 (11:50→20:16)
--- NOTE | 2020-09-30 14:15 | US ---
EXAMINATION TYPE: US venous doppler duplex UE RT DATE OF EXAM: 09/30/2020 COMPARISON: NONE CLINICAL HISTORY: swelling, tenderness. Swelling and redness at wrist.Patient is an IV user. SIDE PERFORMED: Right Right Arm: Negative for DVT Fluid visualized at wrist area of redness. IMPRESSION: There is no evidence of deep vein thrombosis in the right arm.
--- NOTE | 2020-09-30 18:49 | P.HPIM ---
History of Present Illness H&P Date: 09/30/20 Chief Complaint: Swelling of the right forearm pain History of presenting complaint: This is a 40-year-old patient who will be following up with Dr. Poe, patient used to be on narcotic pain medications. Then her family doctor stopped giving her dose. An insurance also did not cover the family doctor. Subsequently about 2 years ago patient started doing IV heroin. Doesn't average of half a gram a day that is with about $70 a day. Patient also is on some medications which she stopped taking a while ago. Patient for 3 days been having fever and chills. Right forearm is swollen she has been shooting herself on the plantar aspect of the wrist it is swelling up to the elbow area. She does say that she's had infections previously in the antecubital fossa. Patient 4 days ago did undergo a miscarriage. She thinks the fetus may have been sent to 10 weeks. Appetite is fair. Some cough or shortness of breath. Patient cigarette smoker. Patient is put on vancomycin and consultation was made to infectious disease and vascular. Patient is able to move her fingers. No discoloration of the hand. Review of systems: GEN.: Fever and chills EYES: None HEENT: None NECK: None RESPIRATORY: Wheezing and cough CARDIOVASCULAR: None GASTROINTESTINAL: None GENITOURINARY: None MUSCULOSKELETAL: As above LYMPHATICS: None HEMATOLOGICAL: None PSYCHIATRY: Anxious NEUROLOGICAL: None Past medical history to include: Hyperlipidemia, I&D abscess of the right antecubital fossa, and the right femoral space, depression Social history: Lives with a friend Donnie. Smoked a pack a day. Has been using IV heroin and meth for over 13 months. Physical examination: VITAL SIGNS: 101.1, 106, 18, 126/77, 98% room air-upon presentation GENERAL: BMI 27.3, sitting up in bed, slightly uncomfortable. EYES: Pupils equal. Conjunctiva normal. HEENT: External appearance of nose and ears normal, oral cavity grossly normal. NECK: JVD not raised; masses not palpable. HEART: First and second heart sounds are normal; no edema. LUNGS: Respiratory rate increased, decreased breath sounds especially wheezing. ABDOMEN: Soft, nontender, liver spleen not palpable, no masses palpable. PSYCH: Alert and oriented x3; mood and affect anxiousl. EXTREMITIES: Right forearm areas swollen red tender from the elbow down to the wrist. The plantar aspect of the wrist is rather tender. There is capillary refill. In patient is able to move her fingers with slight limitation NEUROLOGICAL: Cranial nerves grossly intact; no facial asymmetry, power and sensation grossly intact. LYMPHATICS: No lymph nodes palpable in the axilla and neck INVESTIGATIONS, reviewed in the clinical context: White count 11.5 hemoglobin 11 platelets 319 increased neutrophils potassium 4.1 creatinine 0.62 AST 41 ALT 59 Coronavirus [PCR]-not detected Assessment and plan: -Acute cellulitis of the right forearm secondary to IV injection site for heroin. There appears to be subcutaneous infection, with no clinical evidence of any abscess as there is no fluctuation. Patient's vascular status appears to be intact with good. Refill and able to move her fingers with, very slight limitation. Patient started on IV vancomycin. Consultation to infectious disease and vascular. Support the arm elevated on a pillow and use warm compress. Blood cultures pending -IV heroin use -Methamphetamine use -Chronic nicotine dependence, patient does cigarette smoking, use nicotine patch and nicotine gum -COPD in a current smoker, with acute exacerbation. Use bronchodilators -Mildly elevated liver enzymes. We will do hepatitis screen -DVT prophylaxis use subcu Lovenox -4 pain control. The patient on IV Toradol. Discontinue morphine and Dilaudid. Also use warm compress and elevate the right arm. This was discussed with the patient. Past Medical History Past Medical History: Hyperlipidemia, Osteoarthritis (OA) History of Any Multi-Drug Resistant Organisms: None Reported Past Surgical History: Appendectomy Additional Past Surgical History / Comment(s): LEEP; I&D of abcess in right AC space 11/2018; I&D right femoral space in 08/2018. 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 Also currently smokes meth. - Past Family History Mother Family Medical History: Hypertension, Rheumatoid Arthritis (RA) Brother(s) Family Medical History: Asthma Medications and Allergies Home Medications Medication Instructions Recorded Confirmed Type Cephalexin [Keflex] 500 mg PO Q6HR #40 cap 09/29/20 Rx Sulfamethox-Tmp 800-160Mg [Bactrim 1 each PO Q12HR #20 tab 09/29/20 Rx Ds] Allergies Allergy/AdvReac Type Severity Reaction Status Date / Time No Known Allergies Allergy Verified 09/29/20 17:11 Physical Exam Vitals: Vital Signs Temp Pulse Pulse Resp BP BP Pulse Ox 09/30/20 07:00 98.2 F 74 18 98/63 100 09/30/20 02:00 98.2 F 68 16 106/56 100 09/29/20 20:00 98.8 F 76 18 148/59 100 09/29/20 19:07 100.5 F H 80 16 111/51 99 09/29/20 15:34 98.5 F 77 16 121/59 99 09/29/20 14:20 101.1 F H 106 H 18 126/77 98 Intake and Output 09/29/20 09/30/20 09/30/20 22:59 06:59 14:59 Other: Voiding Method Toilet Toilet # Voids 1 2 Weight 63.503 kg Results CBC & Chem 7: 09/29/20 14:45 09/29/20 14:45 Labs: Abnormal Lab Results - Last 24 Hours (Table) 09/29/20 09/29/20 09/29/20 Range/Units 14:45 14:45 16:15 WBC 11.5 H (3.8-10.6) k/uL RBC 3.62 L (3.80-5.40) m/uL Hgb 11.0 L (11.4-16.0) gm/dL Neutrophils # 8.4 H (1.3-7.7) k/uL Sodium 134 L (137-145) mmol/L Carbon Dioxide 21 L (22-30) mmol/L Glucose 115 H (74-99) mg/dL AST 41 H (14-36) U/L ALT 59 H (4-34) U/L Urine Protein Trace H (Negative) Urine Blood Moderate H (Negative) Urine Mucus Moderate H (None) /hpf Thrombosis Risk Factor Assmnt - Choose All That Apply Each Factor Represents 1 point: Obesity (BMI >25) Thrombosis Risk Factor Assessment Total Risk Factor Score: 1 Thrombosis Risk Factor Assessment Level: Low Risk
[2020-09-30] MEDS ORDERED: LORazepam 1 MG TAB PO PRN (18:50)
--- NOTE | 2020-09-30 22:52 | CONS ---
CONSULTATION DATE OF SERVICE: 09/30/2020 REASON FOR CONSULTATION: Right wrist abscess. HISTORY OF PRESENT ILLNESS: The patient is a 40-year-old female with past medical history significant for IV drug use in this patient recently injected in the right wrist area. A few days later, the patient noticed having increasing swelling and redness to the right wrist that has been progressively getting worse. The patient has been complaining of pain to the right wrist, throbbing, intensity almost 7 to 10 out of 10 with no radiation with associated swelling and redness but no drainage. The patient still having a fever with rigors and chills. With these symptoms, the patient was admitted to the hospital. On arrival to the ER, the patient did have fever of 101 degrees Fahrenheit. Patient heart rate was normal. White count elevated at 11.5 with a left shift. Creatinine was normal. Urine is negative. Mccallum PCR was negative. Patient did have a Doppler ultrasound of the right upper extremity was negative for DVT, but did show fluid collection at the right wrist area. Patient was started on vancomycin. Infectious Disease was consulted for further management of antibiotic therapy. REVIEW OF SYSTEMS: Positive points have been mentioned in HPI. Rest of systems negative. PAST MEDICAL HISTORY: Hyperlipidemia, osteoarthritis and IV drug use. PAST SURGICAL HISTORY: Appendectomy, I and D of the abscess in the right antecubital fossa and right forearm. SOCIAL HISTORY: Current everyday smoker. Did admit to IV drug use. FAMILY HISTORY: Mother history of hypertension and RA. ALLERGIES: No known drug allergies. MEDICATIONS: The patient is currently on Tylenol, Lovenox, Toradol, Ativan, Narcan, nicotine patch, Zofran, Ultram and vancomycin pharmacy to dose. PHYSICAL EXAMINATION: Blood pressure is 90/52 with a pulse of 88, temperature 98.2. She is 99% on room air. General description: The patient is a middle-aged female lying in bed in no distress. No tachypnea or accessory muscle of respiration use. HEENT: Shows pallor. No scleral icterus. Oral mucous membranes dry. Neck: Trachea central. No thyromegaly. Lungs: Unlabored breathing. Clear to auscultation anteriorly. No wheeze or crackles. Heart S1, S2. Regular rate and rhythm. Abdomen soft. No tenderness. No guarding. No rigidity. EXTREMITIES: No edema of the feet. Examination of the right wrist area did have swelling and redness slightly warm to touch, slightly fluctuant. No drainage. NEUROLOGICAL: Patient is awake, alert, oriented times three. Mood and affect normal. LABS: Hemoglobin is 11.9, white count 11.5, creatinine 0.62. Blood culture so far pending. DIAGNOSTIC IMPRESSION AND PLAN: Patient presented to hospital with sepsis in this patient who did have a fever, elevated white count, source is right wrist abscess from injection drug use, likely from a gram-positive skin black and will need to cover for the likely pathogen. PLAN: 1. Await vascular evaluation and possible I and D of the area and deep cultures. 2. Vancomycin, pharmacy to dose, target of 15. 3. We will follow up on clinical condition and culture to further adjust medication if needed. Thank you for this consultation. Will follow this patient along with you. VU / LORENZO: [id number] /
[2020-10-01] MEDS: VANCOMYCIN 1,000 MG in SODIUM CHLORIDE 0.9% 250 ML IVPB SCH (04:23)
[2020-10-01] MEDS: traMADol 50 MG TAB PO PRN (05:57)
[2020-10-01 06:31] LABS: Basophils # (A) 0.1 k/uL (0-0.2); Basophils % (A) 1 %; Eosinophils # (A) 0.2 k/uL (0-0.7); Eosinophils % (A) 2 %; HCT 29.6 % (34.0-46.0); Lymphocytes # (A) 2.6 k/uL (1.0-4.8); Lymphocytes % (A) 31 %; MCHC 33.7 g/dL (31.0-37.0); MCV 94.9 fL (80.0-100.0); Monocytes # (A) 0.5 k/uL (0-1.0); Monocytes % (A) 6 %; Neutrophils # (A) 4.7 k/uL (1.3-7.7); Neutrophils % (A) 58 %; Platelet Count 260 k/uL (150-450); RBC 3.12 m/uL (3.80-5.40); RDW 12.9 % (11.5-15.5); WBC 8.2 k/uL (3.8-10.6)
[2020-10-01 07:28] LABS: Erythrocyte Sedimentation Rate 61 mm/hr (0-20)
[2020-10-01 08:15] VITALS: BP 131/82; PULSE 69; RESP 16; TEMP 98
[2020-10-01] MEDS: ENOXAPARIN 40 MG/0.4 ML SYRINGE SQ SCH (08:21)
[2020-10-01] MEDS: NICOTINE 21MG/24HR PATCH TRANSDERM SCH (08:21)
[2020-10-01 09:26] LABS: African American GFR (CKD) 133.1 (60.0-200.0); Non-African American GFR(CKD) 114.8 (60.0-200.0)
[2020-10-01] MEDS ORDERED: VANCOMYCIN TROUGH DUE 1 EACH MISC MISCELLANE ONE (11:00)
--- NOTE | 2020-10-01 23:19 | P.DS ---
Providers Date of admission: 09/29/20 18:30 Expected date of discharge: 10/01/20 (Left AMA) Attending physician: Je Villafana Consults: 09/29/20 18:26 Consult Physician Stat Consulting Provider: Esteban Faust Consult Reason/Comments: IV drug injection site cellulitis Do you want consulting provider notified?: Yes 09/30/20 10:52 Consult Physician Routine Consulting Provider: Maris Albarran Consult Reason/Comments: r wrist swollen/ivda Do you want consulting provider notified?: Yes Primary care physician: Nam Poe [facility] Hospital Course: Chief Complaint: Swelling of the right forearm pain History of presenting complaint: This is a 40-year-old patient who will be following up with Dr. Poe, patient used to be on narcotic pain medications. Then her family doctor stopped giving her dose. An insurance also did not cover the family doctor. Subsequently about 2 years ago patient started doing IV heroin. Doesn't average of half a gram a day that is with about $70 a day. Patient also is on some medications which she stopped taking a while ago. Patient for 3 days been having fever and chills. Right forearm is swollen she has been shooting herself on the plantar aspect of the wrist it is swelling up to the elbow area. She does say that she's had infections previously in the antecubital fossa. Patient 4 days ago did undergo a miscarriage. She thinks the fetus may have been sent to 10 weeks. Appetite is fair. Some cough or shortness of breath. Patient cigarette smoker. Patient is put on vancomycin and consultation was made to infectious disease and vascular. Patient is able to move her fingers. No discoloration of the hand. Admitted with acute cellulitis of right forearm secondary to IV drug abuse. Was started on IV vancomycin. Right arm elevation. NSAIDs. Today-this morning patient was discovered to be smoking in the room. She was confronted by the nurse. Security was called. Patient decided to leave [place]. Past medical history to include: Hyperlipidemia, I&D abscess of the right antecubital fossa, and the right femoral space, depression Social history: Lives with a friend Donnie. Smoked a pack a day. Has been using IV heroin and meth for over 13 months. INVESTIGATIONS, reviewed in the clinical context: White count 11.5 hemoglobin 11 platelets 319 increased neutrophils potassium 4.1 creatinine 0.62 AST 41 ALT 59 Coronavirus [PCR]-not detected Assessment and plan: -Acute cellulitis of the right forearm secondary to IV injection site for heroin. There appears to be subcutaneous infection, with no clinical evidence of any abscess as there is no fluctuation. Patient's vascular status appears to be intact with good. Refill and able to move her fingers with, very slight limitation. Patient started on IV vancomycin. Consultation to infectious disease and vascular. Support the arm elevated on a pillow and use warm compress. Blood cultures pending -IV heroin use -Methamphetamine use -Chronic nicotine dependence, patient does cigarette smoking, use nicotine patch and nicotine gum -COPD in a current smoker, with acute exacerbation. Use bronchodilators -Mildly elevated liver enzymes. We will do hepatitis screen -DVT prophylaxis use subcu Lovenox -4 pain control. The patient on IV Toradol. Discontinue morphine and Dilaudid. Also use warm compress and elevate the right arm. This was discussed with the patient. Disposition: Patient left AMA Plan - Discharge Summary Discharge Rx Participant: No New Discharge Prescriptions: New Sulfamethox-Tmp 800-160Mg [Bactrim Ds] 1 each PO Q12HR #20 tab Cephalexin [Keflex] 500 mg PO Q6HR #40 cap Discharge Medication List Cephalexin [Keflex] 500 mg PO Q6HR #40 cap 09/29/20 [Rx] Sulfamethox-Tmp 800-160Mg [Bactrim Ds] 1 each PO Q12HR #20 tab 09/29/20 [Rx] Follow up Appointment(s)/Referral(s): aNm Poe MD [Primary Care Provider] - 1-2 days Activity/Diet/Wound Care/Special Instructions: pt left AMA Discharge Disposition: Left Against Medical Advice
== END 2020-10-01 09:45 | disposition left against medical advice (07) ==
LOC: EC 14:04 → 6NMEDSUR 18:30
PROVIDERS: ADMIT Hospitalist; ATTEND Hospitalist
DX: L03.113 Cellulitis of right upper limb (principal); F19.10 Other psychoactive substance abuse, uncomplicated; T50.906A Underdosing of unspecified drugs, medicaments and biological substances, initial encounter; Z91.14 Patient's other noncompliance with medication regimen; A41.9 Sepsis, unspecified organism; R31.9 Hematuria, unspecified; F17.210 Nicotine dependence, cigarettes, uncomplicated; Z53.29 Procedure and treatment not carried out because of patient's decision for other reasons; E78.5 Hyperlipidemia, unspecified; F32.9 Major depressive disorder, single episode, unspecified; F11.90 Opioid use, unspecified, uncomplicated; F15.90 Other stimulant use, unspecified, uncomplicated; J44.1 Chronic obstructive pulmonary disease with (acute) exacerbation; R74.8 Abnormal levels of other serum enzymes; M19.90 Unspecified osteoarthritis, unspecified site; F90.9 Attention-deficit hyperactivity disorder, unspecified type; E66.9 Obesity, unspecified; Z68.27 Body mass index [BMI] 27.0-27.9, adult; Z79.899 Other long term (current) drug therapy; Z20.822 Contact with and (suspected) exposure to COVID-19; Z79.01 Long term (current) use of anticoagulants; Z79.1 Long term (current) use of non-steroidal anti-inflammatories (NSAID); Z90.49 Acquired absence of other specified parts of digestive tract; Z82.49 Family history of ischemic heart disease and other diseases of the circulatory system; Z82.5 Family history of asthma and other chronic lower respiratory diseases; Z82.61 Family history of arthritis
CPT/HCPCS: 96361 ×3; 96365; 96366 ×3; 96375; 99284; 36415; 93005; 80053; 85652; 82565; 83605; 85025 ×2; 81001; 87040; 84145; 87635; 71046; 93971; G0378 ×3; J3370 ×3; J1885